=== PATIENT | female | born 1985 | race Caucasian/White ===

== ENCOUNTER 2017-01-08 21:48 | Inpatient (IN) | payer OTHER ==
--- NOTE | ~2017-01-08 | EKG ---
PATIENT: ROEL HODGES UNIT #: [id number] Ventricular Rate: 128 BPM Atrial Rate: 128 BPM P-R Interval: 130 ms QRS Duration: 88 ms Q-T Interval: 326 ms QTC Calculation(Bezet): 475 ms Calculated R Hopkins: 71 degrees Calculated T Hopkins: -119 degrees Diagnosis Line: Sinus tachycardia Diagnosis Line: Inferior infarct , age undetermined Diagnosis Line: Anterolateral infarct , age undetermined Diagnosis Line: Abnormal ECG Diagnosis Line: Diagnosis Line: Confirmed by CHRISTOPHER CURRAN MD ([id number]) on Diagnosis Line: 01/22/2017 8:01:36 AM INTERPRETING MD: BINA GARCIA
--- NOTE | ~2017-01-08 | FU ---
[facility] Nutrition Therapy DATE: 01/19/17 Patient: ROEL HODGES Physician: CHASE Address: [address] [facility] Room/Bed: [address], Zip: [place] [address] Admit Date: 01/09/17 Date of : [birth year] Height: 4 10 Weight: 55 25.4 NUTRITION MONITORING/FOLLOW-UP: Reason: PT SEEN FOR FOLLOW-UP/ENTERAL NUTRITION SUPPORT DX: ASIPRATION PNA W/RESP FAILURE , ASTHMA EXAC Anthropometrics: 4'10", WT: 58# (26 KG) (BEDSIDE), BMI: 12.1 -WEIGHTS HAVE RANGED 58-85# SINCE ADMIT. ADMIT WEIGHT: 70# Labs: GLU: 80, BUN: 31, CREAT: 0.4, CA+;8.3, ALB: 3.4, ALT: 68, K+:3.3 Meds: PROTONIX, MIRALAX, SENOKOT, IV LEVAQUIN, NOVOLOG, SOLU-MEDROL, ZOFRAN, LOPRESSOR, FUROSEMIDE, KCL I&O's: 1504/380 Skin: ISSUES NOTED Estimated Nutrition Needs: [id number] KCAL 43-65 G PRO Assessment: CHART REVIEWED AND EVENTS NOTED. PT SEEN FOR ENTERAL NUTRITION SUPPORT FOLLOW-UP. PT ON BIPAP (EXTUBATED ON 01/16/17). ENTERAL NUTRITION SUPPORT OF JEVITY 1.2 CURRENTLY OFF 2' PT VOMITING THIS AM, PER RN AND CHART. PER FAMILY IN ROOM, PT HAS HISTORY OF VOMITING. PER AND CHART, PT TOLERATING EN PRIOR TO THIS AM. FAMILY REPORTED NO DIET QUESTIONS AT THIS TIME. OF NOTE, PT DOES NOT WANT TO BE INTUBATED Dx: INADEQUATE ORAL INTAKE R/T CURRENT CLINICAL CONDITION AEB PT ON BIPAP, NEED FOR ALTERNATIVE NUTRITION SUPPORT- IN PROGRESS. -INADEQUATE ENTERAL NUTRITION INFUSION R/T PT VOMITING AEB PT EN ON HOLD AT THIS TIME. Intervention: 1. ENTERAL NUTRITION SUPPORT OFF Monitoring, Evaluation and Goals: GOALS NOT MET 1. ENTERAL NUTRITION; PROVIDE ~80-100% OF ESTIMATED NUTRIENT NEEDS W/NO SIGNS OF INTOLERANCE 2. LABS; WNL 3. WEIGHTS; PROMOTE GRADUAL WEIGHT GAIN MONITOR: -WEIGHTS -TF RE-INITIATION [facility] Nutrition Therapy DATE: 01/19/17 Patient: ROEL HODGES Physician: CHASE Address: [address] [facility] Room/Bed: [address], Zip: [place] [address] Admit Date: 01/09/17 Date of : [birth year] Height: 4 10 Weight: 55 25.4 -LABS Recommendations: 1. REPLACE ELECTROLYTES PRIOR TO INITIATION OF ENTERAL NUTRITION SUPPORT-K+ LOW 2. ONCE MEDICALLY FEASIBLE, RE-START ENTERAL NUTRITION SUPPORT OF JEVITY 1.2 @ 10 ML/HR, ADVANCE 10 ML q 6 HOURS TO GOAL RATE OF 45 ML/HR -PROVIDES 1296 KCAL, 55 G PRO, 821 ML FREE H20 CONTINUE FREE H20 FLUSHES PER MD 3. CONTINUE TO MONITOR BLOOD SUGAR REGIMEN RD WILL F/U PER PROTOCOL PT IS MOD/SEVERELY COMPROMISED Respectfully, RODOLFO MURRY MS, RD, LD Food and Nutritional Services [facility] cc: client file
--- NOTE | ~2017-01-08 | OR ---
Unit #: [id number] #: [id number] Patient: ROEL HODGES [id number] [address] [address] [id number] I MR#: [id number] NAME: ROEL HODGES ROOM: [facility] Date of Procedure: Admission Date: 01/09/2017 Surgeon: Sheeba Eisenberg M.D. : 1985 Attending Physician: Byron Kent M.D. Primary Care Physician: Livia Medeiros M.D. PROCEDURE OPERATIVE NOTE PROCEDURE Diagnostic bronchoscopy. INDICATION Pneumonia. PRE-PROCEDURE DIAGNOSIS Pneumonia. POST PROCEDURE DIAGNOSIS Pneumonia. DETAILS OF THE PROCEDURE After taking consent from the patient explaining the risks and benefits, the patient was placed in a proper position. Bronchoscope introduced through the endotracheal tube which was sitting above the mohsen. We examined the right upper, right middle, right lower lobe, left upper lobe, lingula and left lower lobe. No endobronchial lesion was found. There were thick, mucoid secretions in both lungs which were therapeutically suctioned. Then, we did a bronchoalveolar lavage in the right lower lobe and left lower lobe area with 120 mL saline in and 40 mL back. The patient tolerated the procedure very well, no complications happened. Dictated by... Ney Gibbs/aaron TD: 01/12/2017 12:10 JOB #: [id number] Unit #: [id number] #: [id number] Patient: ROEL HODGES PROCEDURE OPERATIVE NOTE X Sheeba Eisenberg MD PROCEDURE OPERATIVE NOTE
--- NOTE | ~2017-01-08 | EKG ---
PATIENT: ROEL HODGES UNIT #: [id number] Ventricular Rate: 135 BPM Atrial Rate: 135 BPM P-R Interval: 90 ms QRS Duration: 66 ms Q-T Interval: 278 ms QTC Calculation(Bezet): 417 ms P Kenefic: 83 degrees Calculated R Kenefic: 81 degrees Calculated T Kenefic: -16 degrees Diagnosis Line: Sinus tachycardia with short OK Diagnosis Line: Biatrial enlargement Diagnosis Line: Pulmonary disease pattern Diagnosis Line: Nonspecific ST abnormality Diagnosis Line: Abnormal QRS-T angle, consider primary T wave Diagnosis Line: abnormality Diagnosis Line: Abnormal ECG Diagnosis Line: When compared with ECG of 08-JAN-2017 21:06, Diagnosis Line: Nonspecific T wave abnormality now evident in Diagnosis Line: Inferior leads Diagnosis Line: Confirmed by CHRISTOPHER CURRAN MD ([id number]) on Diagnosis Line: 01/17/2017 11:28:12 AM INTERPRETING MD: BINA GARCIA
--- NOTE | ~2017-01-08 | CR72 ---
[facility] A Service of [facility] & [facility] RADIOLOGY TEXT RESULTS PATIENT: ROEL HODGES LOCATION: [facility] 568-01 : [birth year] UNIT #: [id number] AGE: [address]: Brigida Yin MD SEX: F ORDER DR: [id number] [facility] [address] [facility]. [place], [place] [address] [id number] I MR#: [id number] Acc #: [id number] NAME: ROEL HODGES : 1985 SEX: F STUDY DATE/TIME: 01/25/2017 17:36 UNIT: [facility] ROOM: [facility] STUDY DESCRIPTION: CR Chest Single View Portable Attending Physician: Brigida Yin M.D. Ordering Physician: Sheeba Eisenberg M.D. Primary Care Physician: Livia Medeiros M.D. MEDICAL IMAGING REPORT This report is preliminary unless electronic signature is present EXAM Portable chest x-ray, 01/25/2017 HISTORY Respiratory distress. COMPARISON 01/24/2017 at 0313 hours. FINDINGS Marked thoracic scoliosis unchanged. No acute-appearing bony abnormality. The right upper extremity approach PICC is unchanged. Cardiomediastinal silhouette stable. The lungs are well inflated. Previously seen ill-defined density in the right upper lung zone not present on today's examination. This may be a reflection of rapidly improving atelectasis or pneumonia. There is no dense airspace disease, pleural effusion or pneumothorax on today's examination. No suspicious nodule. Dictated by... Antwan Noble M.D. THIS IS AN ELECTRONICALLY VERIFIED REPORT Antwan Noble M.D. at 01/26/2017 8:06 PM LAUREL/moise TD: 01/25/2017 21:04 JOB #: [id number] MEDICAL IMAGING REPORT Page 1 of 1 COPY
--- NOTE | ~2017-01-08 | CR7 ---
[facility] A Service of [facility] RADIOLOGY TEXT RESULTS PATIENT: ROEL HODGES [facility] [birth year] UNIT #: [id number] AGE: [address]: Byron Kent MD SEX: F ORDER DR: [id number] [facility] [address] [facility]. [place], [place] [address] [id number] I MR#: [id number] Acc #: [id number] NAME: ROEL HODGES : 1985 SEX: F STUDY DATE/TIME: 01/10/2017 16:51 UNIT: [facility] ROOM: [facility] STUDY DESCRIPTION: CR Abdomen Single AP View Attending Physician: Byron Kent M.D. Ordering Physician: Byron Kent M.D. Primary Care Physician: Livia Medeiros M.D. MEDICAL IMAGING REPORT This report is preliminary unless electronic signature is present EXAM AP abdomen. DATE 01/10/2017 at 16:51 HISTORY PEG placement. COMPARISON None. FINDINGS Single radiographic image was obtained of the abdomen after injection of 60 mL of Gastrografin into patient's percutaneous gastrostomy tube. There is opacification of the gastric lumen consistent with satisfactory placement of the PEG. No discrete contrast extravasation is seen. Small amount of contrast was also seen in the proximal duodenum. There is severe thoracolumbar levoscoliosis. What appears to be a pump type device projects over the right hemipelvis. Chronic-appearing dislocation of the left hip. Dictated by... Renetta Mcdowell M.D. THIS IS AN ELECTRONICALLY VERIFIED REPORT Renetta Mcdowell M.D. at 01/11/2017 11:57 AM RENAE/moise TD: 01/11/2017 01:20 [facility] A Service of [facility] & [facility] RADIOLOGY TEXT RESULTS PATIENT: ROEL HODGES LOCATION: CICCU2 CICCU2 : [birth year] UNIT #: [id number] AGE: [address]: Byron Kent MD SEX: F ORDER DR: JOB #: [id number] MEDICAL IMAGING REPORT COPY
--- NOTE | ~2017-01-08 | CR72 ---
[facility] A Service of [facility] & [facility] RADIOLOGY TEXT RESULTS PATIENT: ROEL HODGES LOCATION: [place] [id number] : [birth year] UNIT #: [id number] AGE: [address]: Brigida Yin MD SEX: F ORDER DR: [id number] [facility] [address] [place], [place] [address] [id number] I MR#: [id number] Acc #: [id number] NAME: ROEL HODGES : 1985 SEX: F STUDY DATE/TIME: 01/18/2017 5:29 UNIT: [facility] ROOM: [facility] STUDY DESCRIPTION: CR Chest Single View Portable Attending Physician: Brigida Yin M.D. Ordering Physician: Sheeba Eisenberg M.D. Primary Care Physician: Livia Medeiros M.D. MEDICAL IMAGING REPORT This report is preliminary unless electronic signature is present EXAM AP portable chest Date 01/18/2017 at 05:29 HISTORY Pneumonia. Shortness of breath. Symptoms began 01/19/2017 FINDINGS The patient's right arm partially obscures the right hemithorax. There is small right pleural effusion with right basilar and perihilar infiltrate, probably not significantly changed. Left lung remains clear. Heart size is stable. Severe scoliosis. Osteopenia. IMPRESSION Small right pleural effusion and right irp-kz-awunt lung zone infiltrates are probably not significantly changed since the prior study. The right hemithorax is partially obscured by the patient's overlapping arm on this examination. No definite new airspace disease is seen. Dictated by... Renetta Mcdowell M.D. THIS IS AN ELECTRONICALLY VERIFIED REPORT Renetta Mcdowell M.D. at 01/19/2017 12:12 AM RENAE/prabhu TD: 01/18/2017 12:51 JOB #: [id number] MEDICAL IMAGING REPORT COPY
--- NOTE | ~2017-01-08 | CR72 ---
[facility] A Service of [facility] & [facility] RADIOLOGY TEXT RESULTS PATIENT: ROEL HODGES LOCATION: [address] : [birth year] UNIT #: [id number] AGE: [address]: Brigida Yin MD SEX: F ORDER DR: [id number] [facility] [address] [place], [place] [address] [id number] I MR#: [id number] Acc #: [id number] NAME: ROEL HODGES : 1985 SEX: F STUDY DATE/TIME: 01/19/2017 5:12 UNIT: [facility] ROOM: [facility] STUDY DESCRIPTION: CR Chest Single View Portable Attending Physician: Brigida Yin M.D. Ordering Physician: Sheeba Eisenberg M.D. Primary Care Physician: Livia Medeiros M.D. MEDICAL IMAGING REPORT This report is preliminary unless electronic signature is present EXAM AP portable chest, 01/19/2017 at 05:12 HISTORY Aspiration pneumonia with respiratory failure. Symptoms began 01/09/2017. COMPARISON AP portable chest, 01/18/2017 FINDINGS Previous right lung airspace disease appears nearly resolved. There may be minimal residual atelectasis or infiltrate within the right midlung. Left lung is clear. Severe thoracolumbar scoliosis. No definite pleural effusion or pneumothorax. IMPRESSION 1. Improved aeration in the right lung. There may be only minimal atelectasis remaining within the right mid lung. 2. Severe thoracolumbar scoliosis. Dictated by... Renetta Mcdowell M.D. THIS IS AN ELECTRONICALLY VERIFIED REPORT Renetta Mcdowell M.D. at 01/23/2017 8:37 AM RENAE/linh TD: 01/19/2017 10:56 JOB #: [id number] MEDICAL IMAGING REPORT Page 1 of 1 COPY
--- NOTE | ~2017-01-08 | CR72 ---
[facility] A Service of [facility] & [facility] RADIOLOGY TEXT RESULTS PATIENT: ROEL HODGES LOCATION: [address] : [birth year] UNIT #: [id number] AGE: [address]: Byron Kent MD SEX: F ORDER DR: [id number] [place] [address] [facility]. [place], [place] [address] [id number] I MR#: [id number] Acc #: [id number] NAME: ROEL HODGES : 1985 SEX: F STUDY DATE/TIME: 01/09/2017 7:17 UNIT: [facility] ROOM: [facility] STUDY DESCRIPTION: CR Chest Single View Portable Attending Physician: Byron Kent M.D. Ordering Physician: Sandra Lion M.D. Primary Care Physician: Livia Medeiros M.D. MEDICAL IMAGING REPORT This report is preliminary unless electronic signature is present EXAM Frontal chest, 01/09/2017 at 07:17 hours INDICATION 31-year-old female with shortness of air. Ventilator patient. Symptoms for a day. TECHNIQUE Frontal chest was performed. COMPARISON 01/09/2017 at 01:37 hours FINDINGS There is advanced dextroscoliosis with a rotational component involving the thoracolumbar spine. ET tube tip appears to be positioned approximately 2.0 cm above the level of the mohsen. Cardiac silhouette within normal limits. No convincing evidence of volume overload or interstitial edema. There is no dense consolidation or pleural effusion. There is subtle asymmetric haziness in the left hemithorax. This is favored to be artifactual due to patient scoliosis and rotation to the left and related to positioning. No distinct pneumothorax. IMPRESSION 1. Exam degraded by scoliosis and positioning. 2. ET tube tip in good position above the mohsen. No distinct pneumothorax. 3. No new consolidation or effusion. Asymmetric subtle haziness in the left hemithorax favored to be artifactual. It would be impossible to exclude an element of asymmetric atelectasis or developing infiltrate. Continued attention on followup is recommended. Dictated by... [facility] A Service of [facility] RADIOLOGY TEXT RESULTS PATIENT: ROEL HODGES LOCATION: [address] : [birth year] UNIT #: [id number] AGE: [address]: Byron Kent MD SEX: F ORDER DR: Karlos Bruno M.D. THIS IS AN ELECTRONICALLY VERIFIED REPORT Karlos Bruno M.D. at 01/09/2017 4:38 PM Robyn TD: 01/09/2017 11:21 JOB #: [id number] MEDICAL IMAGING REPORT COPY
--- NOTE | ~2017-01-08 | OR ---
Unit #: [id number] #: [id number] Patient: ROEL HODGES [id number] [address] [place], [place] [address] [id number] I MR#: [id number] NAME: ROEL HODGES ROOM: 333 Date of Procedure: 01/19/2017 Admission Date: 01/09/2017 Surgeon: Mayco Gutierrez M.D. : 1985 Attending Physician: Brigida Yin M.D. Primary Care Physician: Livia Medeiros M.D. OPERATIVE REPORT PRIMARY CARE PHYSICIAN Livia Medeiros M.D. PREOPERATIVE DIAGNOSES The patient has aspiration pneumonia. The purpose of the procedure is to convert from gastrostomy to jejunostomy tube through the current fistula. PROCEDURE PERFORMED Upper gastrointestinal endoscopy. POSTOPERATIVE DIAGNOSES The G-J conversion could not be done as the patient is frequently desaturated and required ventilatory assistance with Ambu bag on two occasions, each time shortly after the scope was advanced in the stomach. A total of 2.5 mg of versed was given throughout the procedure. It was felt unsafe to continue the procedure, therefore the original gastrostomy tube was again placed at the end of procedure and the patient will be rescheduled with protected airway under monitored anesthesia care in the next 24 to 48 hours. SEDATION USED Procedural sedation. DESCRIPTION OF PROCEDURE Following detailed explanation of the potential risks and complications of an upper endoscopy and a gastrostomy to jejunostomy conversion namely perforation, bleeding, and complication related to sedation, the procedure was done in intensive care unit, because of patient's body posture, placement of the equipment, and the procedure was quite challenging. In addition, the patient recently been extubated and has very poor respiratory reserve. The sedation using Versed was given. Lubricated tip of the Olympus video upper endoscope was passed through the bite block into the proximal esophagus under direct vision. The entire esophageal mucosa was examined and appeared normal. The scope was then advanced into the gastric cavity and the latter was insufflated. Mucosa of the fundus, body, and antrum was examined and appeared unremarkable. Pylorus was intubated with visualization of the normal duodenal bulb and second and third part of the duodenum. We then proceeded with conversion with the gastrostomy tube was withdrawn and a new jejunostomy tube was placed through the matured gastrocutaneous fistula. The threaded knot was then grasped using a biopsy forceps and the jejunostomy tube was guided towards the pylorus into the duodenum. The patient however rapidly desaturated Unit #: [id number] #: [id number] Patient: ROEL HODGES and became purplish blue requiring ventilatory assistance with Ambu bag. Her oxygen saturation however continued to be 98% to 100%. After she was resuscitated, second attempt intubation again led to the same outcome. It was therefore felt to postpone the procedure and do it under monitored anesthesia care with protected airways. A detailed discussion was also held with the patient's POA and caregiver. The fact that she has a very poor respiratory reserve, because of severe kyphoscoliosis. Any procedure is high risk in her case. The POA and the caregiver understood the risks, but feels that because of the repeated aspiration pneumonias, jejunostomy conversion will be preferable to reduce the risk of significant aspiration in future. Dictated by... Ney Bauer/laith TD: 01/21/2017 10:48 JOB #: [id number] OPERATIVE REPORT X Mayco Gutierrez MD X PROCEDURE OPERATIVE NOTE
--- NOTE | ~2017-01-08 | FU ---
[facility] Nutrition Therapy DATE: 01/24/17 Patient: ROEL HODGES Physician: CHASE Address: [address] [facility] Room/Bed: [address], Zip: [place] [address] Admit Date: 01/09/17 Date of : [birth year] Height: 4 10 Weight: 44 20 NUTRITION MONITORING/FOLLOW-UP: Reason: TF follow-up Anthropometrics: Ht: 4'10" Adm wt: 31.8 kg (70#) BMI: 16.7 Current wt: range from 44-99# since admit Labs: K+ 3.1, Cl- 91, Gluc 173, Creat <0.3, POC 146 Meds: D5%, novolog, Lopressor, Furosemide, Mg, K, Protonix, Reglan, Zofran, Solu-Medrol I&O's: 3096/2500, last BM 01/18 Skin: Internal pump (abd) Estimated Nutrition Needs: 6107-0076 kcal (35-40 kcal/kg) 43-65 g protein (1.2-1.8 g/kg) Assessment: Chart reviewed, events noted. Pt is receiving Jevity 1.2 at goal rate of 45 ml/hr. Tube feeds were held from 12a - 5a d/t 400 ml residuals. Per pump history, pt received 21% of goal volume over the past 24 hrs. Pt receiving 150-200 ml flushes q 4 hrs. See recommendations below. Dx: Inadequate oral intake RT current clinical condition AEB need for alternative nutrition support. -IN PROGRESS -Inadequate enteral nutrition infusion RT 400 ml residuals AEB enteral nutrition being held from 12a - 5a, pt receiving 21% of goal volume. -IN PROGRESS Intervention: 1. Enteral nutrition Monitoring, Evaluation and Goals: 1. Enteral nutrition; provide ~80-100% of estimated nutrition needs w/no signs of intolerance 2. Labs; WNL 3. Weight; prevent further unintentional weight loss Recommendations: 1. Continue Jevity 1.2 @ 45 ml/hr. This will provide: 1296 kcal/ 60 g protein/ 875 ml free H20. Continue free H2O flushes per MD. 2. Continue to monitor blood sugar. [facility] Nutrition Therapy DATE: 01/24/17 Patient: ROEL HODGES Physician: CHASE Address: [address] [facility] Room/Bed: [address], Zip: [place] [address] Admit Date: 01/09/17 Date of : [birth year] Height: 4 10 Weight: 44 20 3. Optimize pt's bowel regimen. Of note, pt's last BM was 01/18 (6 days). Status: Pt is at a moderate-severe nutrition risk. RD will f/u per protocol. Respectfully, AL BEAR, Movement Assembly Final Inspector Corrina Pineda MS, RD, LD Food and Nutritional Services [facility] cc: client file
--- NOTE | ~2017-01-08 | CR72 ---
[facility] A Service of [facility] RADIOLOGY TEXT RESULTS PATIENT: ROEL HODGES LOCATION: [address] : [birth year] UNIT #: [id number] AGE: [address]: Brigida Yin MD SEX: F ORDER DR: [id number] [facility] [address]. [place], [place] [address] [id number] I MR#: [id number] Acc #: [id number] NAME: ROEL HODGES : 1985 SEX: F STUDY DATE/TIME: 01/16/2017 10:06 UNIT: [facility] ROOM: [facility] STUDY DESCRIPTION: CR Chest Single View Portable Attending Physician: Brigida Yin M.D. Ordering Physician: Brigida Yin M.D. Primary Care Physician: Livia Medeiros M.D. MEDICAL IMAGING REPORT This report is preliminary unless electronic signature is present EXAM Portable chest HISTORY Endotracheal tube adjusted. COMPARISON Earlier today. TECHNIQUE A single AP view of the chest was obtained. FINDINGS The endotracheal tube tip has been advanced and is now better positioned with the tip at the level of T3. No new infiltrates are seen. No changes otherwise are noted when compared to the exam earlier today. STAT * RESULT Dictated by... Jonh Kaur M.D. THIS IS AN ELECTRONICALLY VERIFIED REPORT John Kaur M.D. at 01/16/2017 4:45 PM ALLIEF/maya TD: 01/16/2017 10:56 JOB #: [id number] MEDICAL IMAGING REPORT [facility] A Service of [facility] RADIOLOGY TEXT RESULTS PATIENT: ROEL HODGES LOCATION: [address] : [birth year] UNIT #: [id number] AGE: [address]: Brigida Yin MD SEX: F ORDER DR: COPY
--- NOTE | ~2017-01-08 | FU ---
[facility] Nutrition Therapy DATE: 01/16/17 Patient: ROEL HODGES Physician: CHASE Address: [address] [facility] Room/Bed: [address], Zip: [place] [address] Admit Date: 01/09/17 Date of : [birth year] Height: 4 10 Weight: 60 27.5 NUTRITION MONITORING/FOLLOW-UP: Reason: PT SEEN FOR FOLLOW-UP/ENTERAL NUTRITION SUPPORT DX: ASPIRATION PNA W/RESP FAILURE, ASTHMA EXAC Anthropometrics: 4'10", WT: 60# (27 KG), BMI: 12.5 -WEIGHTS HAAVE RANGED ~60-85# SINCE ADMIT Labs: GLU: 59, CREAT: 0.4, ALB: 3.3, AST: 93, ALT: 120, K+:3.2 Meds: FENTANYL, PROTONIX, MIRALAX, VERSED, SENOKOT, IV LEVAQUIN, NOVOLOG, ZOFRAN, FUROSEMIDE, KCL I&O's: 2361/3530 Skin: NO KNOWN SKIN ISSUES EDEMA: BILATERAL HANDS GENERALIZED EDEMA Estimated Nutrition Needs: 4741-4468 KCAL 43-65 G PRO Assessment: CHART REVIEWED AND EVENTS NOTED. PT SEEN FOR ENTERAL NUTRITION SUPPORT FOLLOW-UP. PT CONTINUES TO BE INTUBATED AND SEDATED RECEIVING ALTERNATIVE NUTRITION SUPPORT OF JEVITY 1.2 @ 45 ML/HR. PER RN AND CHART, PT TOLERATING ENTERAL NUTRITION, NOTING NO ISSUES. FAMILY IN ROOM REPORTED NO DIET QUESTIONS AT THIS TIME. PLANS IN PLACE FOR WEANING PROTOCOL (VENT). RD TO FOLLOW. Dx: INADEQUATE ORAL INTAKE R/T CURRENT CLINICAL CONDITION AEB NEED FOR ALTERNATIVE NUTRITION SUPPORT, PT INTUBATED AND SEDATED.- IN PROGRESS Intervention: 1. ENTERAL NUTRITION SUPPORT Monitoring, Evaluation and Goals: GOALS MET 1. ENTERAL NUTRITION; PROVIDE 80-100% OF ESTIMATED NUTRIENT NEEDS W/NO SIGNS OF INTOLERANCE 2. LABS; WNL: GLU, K+ 3. GI; PROMOTE REGULAR GI FUNCTION MONITOR: -TF RATE/RESIDUALS -WEIGHTS -LABS [facility] Nutrition Therapy DATE: 01/16/17 Patient: ROEL HODGES Physician: CHASE Address: [address] [facility] Room/Bed: [address], Zip: [place] [address] Admit Date: 01/09/17 Date of : [birth year] Height: 4 10 Weight: 60 27.5 -EXTUBATION? Recommendations: 1. REPLETE ELECTROLYTES NEEDED (K+ LOW) 2. CONTINUE CURRENT ENTERAL NUTRITION SUPPORT REGIMEN ABOVE-JEVITY 1.2 @ 45 ML/HR -ADEQUATE FOR PT'S CURRENT ESTIMATED NEEDS CONTINUE FREE H20 FLUSHES OF 140 ML TID 3. CONTINUE TO OPTIMIZE BLOOD SUGAR CONTROL REGIMEN 2' ELEVATED BLOOD SUGAR LEVELS RD WILL F/U PER PROTOCOL MOD/SEVERELY COMPROMISED Respectfully, RODOLFO MURRY MS, RD, LD [facility] cc: client file
--- NOTE | ~2017-01-08 | CR72 ---
[facility] A Service of [facility] RADIOLOGY TEXT RESULTS PATIENT: ROEL HODGES LOCATION: [address] : [birth year] UNIT #: [id number] AGE: [address]: Brigida Yin MD SEX: F ORDER DR: [id number] [facility] [address] [facility]. [place], [place] [address] [id number] I MR#: [id number] Acc #: [id number] NAME: ROEL HODGES : 1985 SEX: F STUDY DATE/TIME: 01/13/2017 4:52 UNIT: [facility] ROOM: [facility] STUDY DESCRIPTION: CR Chest Single View Portable Attending Physician: Brigida Yin M.D. Ordering Physician: Sheeba Eisenberg M.D. Primary Care Physician: Livia Medeiros M.D. MEDICAL IMAGING REPORT This report is preliminary unless electronic signature is present EXAM AP portable chest. DATE OF EXAM 01/13/2017 HISTORY Shortness of breath. Respiratory failure. Pneumonia. Aspiration. Symptoms began 01/09/2017. On ventilator. COMPARISON AP portable chest 01/11/2017, and CT chest 01/11/2017. FINDINGS Worsening airspace disease in the right lower lobe since the previous study. Small right pleural effusion may be present, as well. Perihilar airspace disease in the left lung not thought to be significantly changed. Severe thoracolumbar scoliosis. ET tube remains in satisfactory position in the mid thoracic trachea. Right arm approach PICC extends to the cavoatrial junction. No visible pneumothorax. IMPRESSION 1. Bilateral alveolar disease changes consistent with the appearance of aspiration or pneumonia. Interval worsening airspace disease in the right lower lobe since 01/11/2017. Small right pleural effusion may also be present. 2. No visible pneumothorax. 3. Scoliosis. Dictated by... Renetta Mcdowell M.D. [facility] A Service of [facility] RADIOLOGY TEXT RESULTS PATIENT: ROEL HODGES LOCATION: [address] : [birth year] UNIT #: [id number] AGE: [address]: Brigida Yin MD SEX: F ORDER DR: THIS IS AN ELECTRONICALLY VERIFIED REPORT Renetta Mcdowell M.D. at 01/14/2017 9:59 PM Natalie TD: 01/13/2017 23:37 JOB #: [id number] MEDICAL IMAGING REPORT COPY
--- NOTE | ~2017-01-08 | CO ---
Unit #: [id number] #: [id number] Patient: ROEL HODGES [id number] [address] [place], [place] [address] [id number] I MR#: [id number] NAME: ROEL HODGES ROOM: [facility] Age: 31 Sex: F Admission Date: 01/09/2017 : 1985 Attending Physician: Brigida Yin M.D. Primary Care Physician: Livia Medeiros M.D. Consultation Date: 01/21/2017 CONSULTATION REPORT HISTORY OF PRESENT ILLNESS This is a 31-year-old white female with cerebral palsy, severe contractures, scoliosis, and immobility. She is nonverbal and unable to give a history, but does blink her eyes yes and no. She was seen by Cardiology a few years ago during hospitalization with pneumonia and was noted to have sinus tachycardia. Additional past medical history includes asthma and GERD. She did have a trach in the past, but underwent reversal/closure. She is known to have dysphagia and has a PEG tube. She presented to the hospital with respiratory failure and a low oxygen saturation as well as a cough after she received a PEG tube feeding in the outpatient care setting. She also had some worsening mental status. She was brought to the emergency department for further evaluation. She was diagnosed with acute hypoxic respiratory failure and aspiration pneumonia. She was transferred to the intensive care unit for further management. Yesterday, she was transferred to telemetry, but was noted to have tachycardia with rates in the 130s to 140s. Cardiology was consulted for further management. It is unclear if the patient is asymptomatic as she is nonverbal. Her mother is at the bedside and has provided some details. She states that during periods of distress or anxiety, the patient is known to have a high heart rate. She has not complained of any chest pain, dizziness, or palpitations. She has not had any lower extremity edema. She has been short of breath recently since admission. She is currently on a BiPAP during exam. Cardiology was consulted for tachycardia. Upon review of EKG, the patient has sinus tachycardia with nonspecific ST-T wave changes. Labs revealed potassium 3.1, sodium is elevated at 151, creatinine is 0.3. LFTs were mildly elevated. BNP last week was 507. TSH was low at 0.27, but free T4 was normal. Initial cardiac enzymes were negative. PAST MEDICAL HISTORY 1. Cerebral palsy with severe contractures. 2. Severe scoliosis. 3. Immobility syndrome. 4. Sinus tachycardia. 5. Asthma. 6. GERD. 7. Dysphagia, status post PEG tube. 8. History of trach, now closed. 9. Nonsmoker. PAST SURGICAL HISTORY 1. PEG tube. 2. Trach. Unit #: [id number] #: [id number] Patient: ROEL HODGES 3. Baclofen pump. HOME MEDICATIONS List of home medications include Prilosec, albuterol, Singulair, Benadryl, Maalox, MiraLax, Jevity, Tussionex. ALLERGIES Morphine and codeine. SOCIAL HISTORY The patient lives in a group usp. She is a nonsmoker. There are no reports of alcohol or illicit drug use. FAMILY HISTORY Noncontributory. REVIEW OF SYSTEMS Difficult to obtain per the patient. PHYSICAL EXAMINATION VITAL SIGNS: Temperature 99, pulse 119, blood pressure 111/77. CONSTITUTIONAL: This is a 31-year-old white female, who is anxious, on BiPAP. SKIN: Warm and dry. NECK: Supple. No jugular vein distention. No hepatojugular reflux. Normal carotid upstrokes. No carotid bruits auscultated. HEART: S1 and S2. Regular rate and rhythm, but tachycardic. No murmurs, rubs, or gallops. LUNGS: Bilateral breath sounds are coarse with rhonchi throughout. Respirations are slightly tachypneic. ABDOMEN: Soft, nontender, and nondistended. Positive bowel sounds auscultated x4 quadrants. No ascites noted. EXTREMITIES: Bilateral lower extremities have no pretibial pitting edema. DP and PT pulses are 2+. Capillary refill less than 3 seconds. DIAGNOSTIC STUDIES LABORATORY RESULTS: White blood cell count 9.8, hemoglobin 13.8, hematocrit 42, platelets 168. Sodium 151, potassium 3.1, chloride 96, CO2 of 49, BUN 26, creatinine 0.3, glucose 194, AST 46, ALT 86, alkaline phosphatase 56. BNP 507 on 01/11/2017. TSH 0.27, free T4 0.97. Troponin 0.05. IMAGING STUDIES: Chest x-ray is significant for aspiration pneumonia. CARDIOVASCULAR STUDIES: EKG reveals sinus tachycardia with nonspecific ST-T wave changes. IMPRESSION 1. Acute hypoxic respiratory failure, currently on BiPAP. 2. Aspiration pneumonia. 3. History of dysphagia, status post PEG tube. 4. Sinus tachycardia. 5. Left ventricular ejection fraction of 50% to 55% with mild mitral valve prolapse and yfyq-bq-gmdergmy mitral regurgitation January 2017. 6. Hypernatremia. 7. Hypokalemia. 8. Transaminitis. 9. Cerebral palsy. Unit #: [id number] #: [id number] Patient: ROEL HODGES 10. Severe scoliosis. 11. Contractures. 12. Immobility syndrome. 13. Asthma. PLAN 1. The patient presented to the hospital with altered mental status, shortness of breath, and low O2 saturation. She was admitted for aspiration pneumonia and respiratory failure. 2. Cardiology was consulted for tachycardia. Upon review of telemetry and EKG, the patient has sinus tachycardia with rates in the 130s to 140s. 3. She has been started on IV metoprolol. We will change parameters for further heart rate control. 4. TSH level was low, but free T4 was normal. 5. 2D echocardiogram completed on 01/11/2017 revealed an ejection fraction of 50% to 55% with mild mitral valve prolapse and xbbd-xe-ixlhsvny mitral regurgitation. 6. The patient is a poor historian, but there have been no complaints of chest pain and cardiac enzymes are negative. 7. The patient's potassium and magnesium levels are low and she is on protocol. 8. She is currently on free water, which may need to be increased. 9. She is planned for PEG tube advancement to prevent further aspiration. Dictated by... Taylor Herndon APRN for [facility]/laith TD: 01/23/2017 02:22 JOB #: [id number] CONSULTATION REPORT Page 1 of 1 X X CONSULTATION REPORT
--- NOTE | ~2017-01-08 | CR72 ---
[facility] A Service of [facility] RADIOLOGY TEXT RESULTS PATIENT: ROEL HODGES LOCATION: [address] : [birth year] UNIT #: [id number] AGE: [address]: Byron Kent MD SEX: F ORDER DR: [id number] [facility] [address] [facility]. [place], [place] [address] [id number] I MR#: [id number] Acc #: [id number] NAME: ROEL HODGES : 1985 SEX: F STUDY DATE/TIME: 01/08/2017 22:14 UNIT: [facility] ROOM: [facility] STUDY DESCRIPTION: CR Chest Single View Portable Attending Physician: Byron Kent M.D. Ordering Physician: Joe Brown M.D. Primary Care Physician: Livia Medeiros M.D. MEDICAL IMAGING REPORT This report is preliminary unless electronic signature is present EXAM AP portable chest DATE 01/08/2017 at 22:14 HISTORY Shortness breath, vomiting and cough today. COMPARISON AP portable chest radiograph 11/13/2015 FINDINGS There is severe thoracolumbar dextroscoliosis. Mediastinal contour shifted toward the left. Suspected left lower lobe airspace disease. Right lung appears relatively clear. No definite pleural effusion or pneumothorax. IMPRESSION 1. Suspected ill-defined airspace disease in the left lower lobe. Correlate clinically for pneumonia. 2. Severe thoracolumbar dextroscoliosis. Dictated by... Renetta Mcdowell M.D. THIS IS AN ELECTRONICALLY VERIFIED REPORT Renetta Mcdowell M.D. at 01/09/2017 2:[address] [facility]/justino TD: 01/09/2017 10:04 JOB #: [id number] [facility] A Service of [facility] RADIOLOGY TEXT RESULTS PATIENT: ROEL HODGES LOCATION: [address] : [birth year] UNIT #: [id number] AGE: [address]: Byron Kent MD SEX: F ORDER DR: MEDICAL IMAGING REPORT COPY
--- NOTE | ~2017-01-08 | CR72 ---
[facility] A Service of [facility] & [facility] RADIOLOGY TEXT RESULTS PATIENT: ROEL HODGES LOCATION: [facility] [place] [facility] 568-01 : 83 UNIT #: [id number] AGE: [address]: Brigida Yin MD SEX: F ORDER DR: [id number] [facility] [address] [facility]. [place], [place] [address] [id number] I MR#: [id number] Acc #: [id number] NAME: ROEL HODGES : 1985 SEX: F STUDY DATE/TIME: 01/24/2017 3:13 UNIT: [facility] ROOM: [facility] STUDY DESCRIPTION: CR Chest Single View Portable Attending Physician: Brigida Yin M.D. Ordering Physician: Sheeba Eisenberg M.D. Primary Care Physician: Livia Medeiros M.D. MEDICAL IMAGING REPORT This report is preliminary unless electronic signature is present EXAM AP portable chest 01/24/2017. HISTORY Respiratory failure. Short of air. Follow up pulmonary status. TECHNIQUE AP portable upright chest x-ray. FINDINGS Exam shows patchy opacity in the upper right lung that is newly visible since 01/22/2017. New pulmonary infiltrate is suspected. Continued follow up recommended. Remaining portions of both lungs appear clear. Severe thoracic deformity due to profound scoliosis. PICC remains in good position. Heart size normal. No pleural effusion. IMPRESSION Possible new infiltrate in the right upper lung. Dictated by... Hermann Smiley M.D. THIS IS AN ELECTRONICALLY VERIFIED REPORT Hermann Smiley M.D. at 01/24/2017 10:06 PM RGW/wayne TD: 01/24/2017 13:24 JOB #: [id number] MEDICAL IMAGING REPORT Page 1 of 1 COPY
--- NOTE | ~2017-01-08 | A ---
[facility] Nutrition Therapy DATE: 01/10/17 Patient: ROEL HODGES Physician: CHASE Address: [address] [facility] Room/Bed: [address], Zip: [place] [address] Admit Date: 01/09/17 Date of : [birth year] Height: 4 10 Weight: 85 39 NUTRITIONAL ASSESSMENT: REASON: PT SEEN FOR NO DIET ORDER IN ICU ASSESSMENT, ALSO LOW BMI NOTED PT IS 31 Y.O. FEMALE ADMITTED FOR ASPIRATION PNA W/RESPIRATORY FAILURE, ASTHMA EXAC PMH: CEREBRAL PALSY, DYSPHAGIA S/P PEG PLACEMENT, PREVIOUS TRACH PLACEMENT, ASTHMA, PNA, GERD, SCOLIOSIS Anthropometrics: 4'10", WT: 80# (BEDSIDE) (36 KG), BMI: 16.7, 84%IBW -WEIGHTS HAVE RANGED 66-85# SINCE ADMIT Labs: GLU: 189, BUN: 8, CREAT: 0.3, CA+:7.6 Meds: PROTONIX, MIRALAX, IV LEVAQUIN, D5%, FENTANYL/VERSED, NOVOLOG, SOLU-MEDROL, ZOFRAN, NACL I/O & Bowel function: 4291/625 Skin Integrity: PEG TUBE MID ABD Estimated Nutrition Needs: 3767-5441 KCAL (35-40 KCAL/KG BW) 43-65 G PRO (1.2-1.8 G PRO/KG BW) FLUIDS CONSISTENT W/KCAL NEEDS OR MANAGE PER MD Assessment: CHART REVIEWED AND EVENTS NOTED. PT SEEN FOR NO DIET ORDER IN ICU + LOW BMI. PT ARRIVED THIS AM AT 8A 2' DX ABOVE, CURRENTLY INTUBATED AND SEDATED. PER RN AND CHART, PT WAS RECEIVING ALTERNATIVE NUTRITION SUPPORT OF JEVITY 1.2 (237 ML) BOLUS 1 CAN QID. NO FAMILY IN ROOM AT THIS TIME. NO CURRENT PLANS IN PLACE TO BEGIN ALTERNATIVE NUTRITION AT THIS TIME. RD TO FOLLOW. SEE RECOMMENDATIONS BELOW. -TUBE FEEDS PROVIDE 1152 KCAL, 53 G PRO, 778 ML FREE H20 Dx: INADEQUATE ORAL INTAKE R/T DYSPHAGIA, PMH AEB PT INTUBATED AND SEDATED, PEG TUBE IN PLACE, CURRENTLY NPO. Intervention: 1. NPO 2. PEG TUBE Monitoring, Evaluation and Goals: 1. ENTERAL NUTRITION; PROVIDE 100% ESTIMATED NUTRIENT NEEDS; TOLERATE EN AT GOAL W/NO SIGNS OF INTOLERANCE 2. WEIGHTS; PROMOTE GRADUAL WEIGHT GAIN TOWARDS HEALTHY BMI (19.0-25.0) OR +/-10%IBW 3. LABS; WNL [facility] Nutrition Therapy DATE: 01/10/17 Patient: ROEL HODEGS Physician: CHASE Address: [address] [facility] Room/Bed: [address], Zip: [place] [address] Admit Date: 01/09/17 Date of : [birth year] Height: 4 10 Weight: 85 39 MONITOR: -WEIGHTS -PLANS FOR ENTERAL NUTRITION SUPPORT -EXTUBATION -LABS Recommendations: 1. ONCE MEDICALLY FEASIBLE, BEGIN ALTERNATIVE NUTRITION SUPPORT OF JEVITY 1.2 @ 20 ML/HR, ADVANCE 10 ML q 4 HOURS TO GOAL RATE OF 45 ML/HR -PROVIDES 1296 KCAL, 60 G PRO, 875 ML FREE H20 ADD FREE H20 FLUSHES OF 140 ML TID TO MEET PT'S CURRENT ESTMATED FLUID NEEDS OR MANAGE PER MD 2. OPTIMIZE PT'S BLOOD SUGAR CONTROL REGIMEN (PT'S BLOOD SUGARS ELEVATED) RD WILL F/U PER PROTOCOL PT IS SEVERELY COMPROMISED Respectfully, RODOLFO MURRY MS, RD, LD Food and Nutritional Services [facility] cc: client file
--- NOTE | ~2017-01-08 | CR72 ---
[facility] A Service of [facility] & [facility] RADIOLOGY TEXT RESULTS PATIENT: ROEL HODGES LOCATION: [place] [address]-04 : 83 UNIT #: [id number] AGE: [address]: Brigida Yin MD SEX: F ORDER DR: [id number] [facility] [address] [facility] [place], [place] [address] [id number] I MR#: [id number] Acc #: [id number] NAME: ROEL HODGES : 1985 SEX: F STUDY DATE/TIME: 01/15/2017 4:49 UNIT: [facility] ROOM: [facility] STUDY DESCRIPTION: CR Chest Single View Portable Attending Physician: Brigida Yin M.D. Ordering Physician: Sheeba Eisenberg M.D. Primary Care Physician: Livia Medeiros M.D. MEDICAL IMAGING REPORT This report is preliminary unless electronic signature is present EXAM AP portable chest date 01/15/2017 at 0449 HISTORY Pneumonia and shortness of breath. Symptoms began 01/09/2017. History of asthma. COMPARISON AP portable chest 01/14/[address] chest 01/11/2017. FINDINGS Severe thoracolumbar scoliosis. Dense airspace disease changes in the right mfr-op-vqfoo lung zone with layering right pleural effusion and probably not significantly changed allowing for differences in positioning and technique. ET tube remains in the hur-is-zyycd thoracic trachea. Suspected mild left basilar infiltrates unchanged. Right arm approach PICC tip extends to the SVC or cavoatrial junction. No visible pneumothorax. IMPRESSION Persistent dense right dtg-dy-adhyw lung zone consolidation with small layering right pleural effusion and ill-defined infiltrates in left base, without significant change from 1 day prior. Dictated by... Renetta Mcdowell M.D. THIS IS AN ELECTRONICALLY VERIFIED REPORT Renetta Mcdowell M.D. at 01/15/2017 10:02 PM Angella/ori TD: 01/15/2017 09:17 [facility] A Service of [facility] & [facility] RADIOLOGY TEXT RESULTS PATIENT: ROEL HODGES LOCATION: [address] [id number] [birth year] UNIT #: [id number] AGE: [address]: Brigida Yin MD SEX: F ORDER DR: JOB #: [id number] MEDICAL IMAGING REPORT COPY
--- NOTE | ~2017-01-08 | CR72 ---
[facility] A Service of [facility] & [facility] RADIOLOGY TEXT RESULTS PATIENT: ROEL HODGES LOCATION: [address] : 83 UNIT #: [id number] AGE: [address]: Byron Kent MD SEX: F ORDER DR: [id number] [facility] [address] [facility]. [place], [place] [address] [id number] I MR#: [id number] Acc #: [id number] NAME: ROEL HODGES : 1985 SEX: F STUDY DATE/TIME: 01/10/2017 7:08 UNIT: [facility] ROOM: [facility] STUDY DESCRIPTION: CR Chest Single View Portable Attending Physician: Byron Kent M.D. Ordering Physician: Sandra Lion M.D. Primary Care Physician: Livia Medeiros M.D. MEDICAL IMAGING REPORT This report is preliminary unless electronic signature is present HISTORY Respiratory failure. Endotracheal tube placement. TECHNIQUE AP portable chest x-ray. FINDINGS Newly placed endotracheal tube tip is in good position in the low thoracic trachea at least 2 cm above the mohsen. Mild perihilar infiltrate or edema, unchanged since yesterday. Peripheral lungs are clear. Heart size normal. Severe scoliosis. Right arm PICC tip in the low SVC. IMPRESSION Newly placed endotracheal tube in good position. Dictated by... Hermann Smiley M.D. THIS IS AN ELECTRONICALLY VERIFIED REPORT Hermann Smiley M.D. at 01/10/2017 4:12 PM NELLY/mera TD: 01/10/2017 07:40 JOB #: [id number] MEDICAL IMAGING REPORT COPY
--- NOTE | ~2017-01-08 | CR72 ---
[facility] A Service of [facility] RADIOLOGY TEXT RESULTS PATIENT: ROEL HODGES LOCATION: [place] [address]-04 : 83 UNIT #: [id number] AGE: [address]: Brigida Yin MD SEX: F ORDER DR: [id number] [facility] [address] [facility]. [place], [place] [address] [id number] I MR#: [id number] Acc #: [id number] NAME: ROEL HODGES : 1985 SEX: F STUDY DATE/TIME: 01/17/2017 3:18 UNIT: [facility] ROOM: [facility] STUDY DESCRIPTION: CR Chest Single View Portable Attending Physician: Brigida Yin M.D. Ordering Physician: Sheeba Eisenberg M.D. Primary Care Physician: Livia Medeiros M.D. MEDICAL IMAGING REPORT This report is preliminary unless electronic signature is present EXAM AP portable chest DATE 01/17/2017 03:18 HISTORY Extubated 01/16/2017. Pneumonia and shortness of breath which began 01/09/2017. COMPARISON AP portable chest 01/16/2017 10:06 FINDINGS The right uqm-ln-jwmoi lung zone consolidative change appears improved with mild right basilar airspace disease and small right pleural effusion remaining. ET tube has been removed. Right arm approach PICC remains. Left lung appears clear. No visible pneumothorax. Thoracolumbar scoliosis redemonstrated. IMPRESSION Significantly improved aeration within the right zhl-le-ljgum lung zone compared to yesterday's study with a small amount of residual right basilar infiltrate and small pleural effusion remaining. No visible pneumothorax. ET tube remains in satisfactory position. Dictated by... Renetta Mcdowell M.D. THIS IS AN ELECTRONICALLY VERIFIED REPORT Renetta Mcdowell M.D. at 01/17/2017 10:25 PM LLH/mike [facility] A Service of [facility] RADIOLOGY TEXT RESULTS PATIENT: ROEL HODGES LOCATION: [place] [address]04 : 83 UNIT #: [id number] AGE: [address]: Brigida Yin MD SEX: F ORDER DR: TD: 01/17/2017 12:20 JOB #: [id number] MEDICAL IMAGING REPORT COPY
--- NOTE | ~2017-01-08 | HP ---
Unit #: [id number] #: [id number] Patient: ROEL HODGES [id number] [address] [place], [place] [address] [id number] I MR#: [id number] NAME: ROEL HODGES ROOM: 33123 Age: 31 Sex: F Admission Date: 01/09/2017 : 1985 Attending Physician: Ruthie aZmora M.D. Primary Care Physician: Livia Medeiros M.D. HISTORY AND PHYSICAL CHIEF COMPLAINT Aspiration pneumonia with asthma exacerbation associated with respiratory failure. HISTORY This 31-year-old female with cerebral palsy and multiple flexion contractures, asthma, is admitted for respiratory failure. Caregivers are no longer present. I am told that the patient was receiving feedings via her G-tube at home when she began to cough. She was found to have low O2 sats at about 70%. She was brought to this emergency department where she was placed on oxygen with improvement. She was given Tylenol, along with antibiotics. She then had a sudden event after midnight where she began to gasp for air, had decreased level of consciousness. She was electively intubated due to persistent hypoxia. Currently on examination, the patient does have expiratory wheezes, and some rales. She was given Zosyn, tobramycin and Zithromax. Already, chest x-ray does show a left lower lobe infiltrate. ABG is consistent with acute hypoxic hypercapnic respiratory failure. PAST MEDICAL HISTORY 1. Cerebral palsy with multiple flexion contractures and patient has a baclofen implantable pump for severe spasms. 2. Severe scoliosis. 3. Asthma. 4. GERD. 5. Dysphagia with PEG tube in place. 6. Right hip surgery. 7. Previous tracheostomy. This is now closed. ALLERGIES Morphine and codeine. HOME MEDICATIONS 1. Albuterol nebulizer q.4 hours. 2. Omeprazole 40 mg daily. 3. Singulair 10 mg daily. 4. Skin care lotions. 5. Zofran 4 mg ODT q.6 hours as needed. 6. I believe patient takes Prilosec 40 mg daily as well, possibly MiraLAX, tussin and Maalox. 7. Jevity 237 mL to the PEG tube q.i.d. FAMILY HISTORY Unit #: [id number] #: [id number] Patient: ROEL HODGES per old records. SOCIAL HISTORY I am told that the patient lives with caregivers. She currently does not smoke or drink alcohol. REVIEW OF SYSTEMS Impossible to obtain as patient is currently sedated on a ventilator. PHYSICAL EXAMINATION GENERAL APPEARANCE: Thin, sedated, 31-year-old female who looks younger than stated age. VITAL SIGNS: Temperature 100.6, initial heart rate 153, currently is 113. O2 saturation currently is 94% on FIO2 of 50%. Blood pressure is 100/66, respirations 19. HEENT: Eyes PERRLA. Pharynx - patient is orally intubated. NECK: Her neck is rotated towards the right and flexed. CHEST: Expiratory wheezes and crackles. CARDIAC: Tachy S1 and S2 without murmur. ABDOMEN: Bowel sounds are diminished. The patient has a PEG tube in the mid abdomen, nontender. No hepatosplenomegaly or masses. EXTREMITIES: Notable for flexion contractures, no edema. NEUROLOGIC EXAM: The patient is sedated. Pupils react. She has severe flexion contractures and dextroscoliosis on exam. BACK EXAMINATION: Reveals severe dextroscoliosis. DIAGNOSTIC STUDIES LABORATORY: Admission labs - hematocrit 43.8, white blood count is 13.1, normal platelet count. Normal coags. SMA-12 - glucose is 279. Lactic acid 2. ABG post intubation - pH 7.16, pCO2 76, pO2 163. O2 saturation is 97.8% on a tidal volume of 400, PEEP of 5, AC 16, FIO2 of 50%. Cardiac markers are negative. IMAGING: Chest x-ray - left lower lobe infiltrate. Severe dextroscoliosis. CARDIOVASCULAR: EKG - sinus tachycardia, rate [address] wave abnormalities. ASSESSMENT 1. Aspiration pneumonia. 2. Asthma exacerbation with acute hypoxic/hypercapnic respiratory failure. 3. Event in the emergency room where patient did have decreased level of consciousness and was gasping. She then dropped her O2 sats and required intubation. 4. Cerebral palsy with severe dextroscoliosis, flexion contractures and spasms with a baclofen implantable pump in place. 5. Severe scoliosis. 6. Hyperglycemia which could be reactive. 7. Dysphagia with PEG tube in place. 8. Prior trach which is now closed. Unit #: [id number] #: [id number] Patient: ROEL HODGES 9. Gastroesophageal reflux disease. PLANS 1. IV fluids, hold tube feeds for now. 2. Zosyn, and Levaquin pending cultures. Will write for Duo-Nebs and steroids. 3. Pulmonary consultation. 4. DVT and gastritis prophylaxis. 5. Obtain EEG. If not awakening, will obtain a CT scan. 6. Obtain urinalysis. 7. Accu-Cheks, check hemoglobin A1c, and if needed, will write for low dose sliding scale insulin. 8. Light sedation. Critical care time spent in evaluating this patient was 35 minutes. Dictated by Ruthie Zamora M.D. AML/df TD: 01/09/2017 05:55 JOB #: [id number] HISTORY AND PHYSICAL X Ruthie Zamora MD X HISTORY AND PHYSICAL
--- NOTE | ~2017-01-08 | EKG ---
PATIENT: ROEL HODGES UNIT #: [id number] Ventricular Rate: 147 BPM Atrial Rate: 147 BPM P-R Interval: 68 ms QRS Duration: 64 ms Q-T Interval: 332 ms QTC Calculation(Bezet): 519 ms P Langdon: 71 degrees Calculated R Langdon: 71 degrees Calculated T Langdon: 63 degrees Diagnosis Line: Sinus tachycardia with short [place] Diagnosis Line: Nonspecific ST and T wave abnormality Diagnosis Line: Abnormal ECG Diagnosis Line: When compared with ECG of 13-NOV-2015 19:57, Diagnosis Line: No significant change was found Diagnosis Line: Confirmed by MELONY ACEVES MD ([id number]) on Diagnosis Line: 01/09/2017 4:13:20 PM INTERPRETING MD: KETAN GARCIA
--- NOTE | ~2017-01-08 | CR72 ---
[facility] A Service of [facility] RADIOLOGY TEXT RESULTS PATIENT: ROEL HODGES LOCATION: [place] [id number] : [birth year] UNIT #: [id number] AGE: [address]: Brigida Yin MD SEX: F ORDER DR: [id number] [facility] [address] [facility]. [place], [place] [address] [id number] I MR#: [id number] Acc #: [id number] NAME: ROEL HODGES : 1985 SEX: F STUDY DATE/TIME: 01/14/2017 4:34 UNIT: [facility] ROOM: [facility] STUDY DESCRIPTION: CR Chest Single View Portable Attending Physician: Brigida Yin M.D. Ordering Physician: Sheeba Eisenberg M.D. Primary Care Physician: Livia Medeiros M.D. MEDICAL IMAGING REPORT This report is preliminary unless electronic signature is present EXAM AP portable chest, 01/14/2017. HISTORY Endotracheal tube in place. Shortness of breath. Aspiration pneumonia. Respiratory failure on the ventilator. COMPARISON STUDIES AP portable chest, 01/13/2017; CT chest, 01/11/2017. FINDINGS Consolidative type changes within the right mid to lower lung zone and ill-defined infiltrates in medial and left lower lobe, probably not significantly changed. Stable small to moderate right pleural effusion. Right arm-approach PICC and ET tube are stable in position. No visible pneumothorax. Scoliosis. IMPRESSION Right mid to lower lung zone consolidation with small to moderate right pleural effusion and left perihilar medial and left basilar infiltrates, without significant change from 01/13/2017. Supporting lines and tubes appear stable. No visible pneumothorax. Dictated by... Renetta Mcdowell M.D. THIS IS AN ELECTRONICALLY VERIFIED REPORT Renetta Mcdowell M.D. at 01/14/2017 9:58 PM VERENA/yana [facility] A Service of [facility] RADIOLOGY TEXT RESULTS PATIENT: ROEL HODGES LOCATION: [address] : [birth year] UNIT #: [id number] AGE: [address]: Brigida Yin MD SEX: F ORDER DR: TD: 01/14/2017 13:14 JOB #: [id number] MEDICAL IMAGING REPORT COPY
--- NOTE | ~2017-01-08 | CR72 ---
[facility] A Service of [facility] & [facility] RADIOLOGY TEXT RESULTS PATIENT: ROEL HODGES LOCATION: [facility] 568-01 : [birth year] UNIT #: [id number] AGE: [address]: Brigida Yin MD SEX: F ORDER DR: [id number] [facility] [address] [facility]. [place], [place] [address] [id number] I MR#: [id number] Acc #: [id number] NAME: ROEL HODGES : 1985 SEX: F STUDY DATE/TIME: 01/26/2017 18:23 UNIT: [facility] ROOM: [facility] STUDY DESCRIPTION: CR Chest Single View Portable Attending Physician: Brigida Yin M.D. Ordering Physician: Brigida Yin M.D. Primary Care Physician: Livia Medeiros M.D. MEDICAL IMAGING REPORT This report is preliminary unless electronic signature is present EXAM Portable chest HISTORY Severe shortness of air history of pneumonia. Symptoms for 17 days. COMPARISON 01/25/2017 FINDINGS Portable view of the chest demonstrates marked deformity of the thorax secondary to severe scoliosis. Hyperinflation of the left lung hypoinflation of the right lung. The focal parenchymal opacity seen in the right upper lung on the prior chest radiograph of 01/24/2017, appears to have resolved. There is a minimal amount of pleural thickening along the minor fissure. No effusions. Heart, mediastinum unremarkable. Dictated by... Fan Vega M.D. THIS IS AN ELECTRONICALLY VERIFIED REPORT Fan Vega M.D. at 01/27/2017 8:09 PM MOIZ/mike TD: 01/27/2017 04:29 JOB #: [id number] MEDICAL IMAGING REPORT Page 1 of 1 COPY
--- NOTE | ~2017-01-08 | CT57 ---
[facility] A Service of [facility] & [facility] RADIOLOGY TEXT RESULTS PATIENT: ROEL HODGES LOCATION: [address] : 83 UNIT #: [id number] AGE: [address]: Byron Kent MD SEX: F ORDER DR: [id number] [facility] [address] [facility]. [place], [place] [address] [id number] I MR#: [id number] Acc #: [id number] NAME: ROEL HODGES : 1985 SEX: F STUDY DATE/TIME: 01/11/2017 12:47 UNIT: [facility] ROOM: [facility] STUDY DESCRIPTION: CT Chest Wo Cont Attending Physician: Byron Kent M.D. Ordering Physician: Sheeba Eisenberg M.D. Primary Care Physician: Livia Medeiros M.D. MEDICAL IMAGING REPORT This report is preliminary unless electronic signature is present EXAM CT chest without contrast DATE 01/11/2017 at 1247 HISTORY Shortness of breath since 01/08/2017. Pneumonia. Respiratory failure. History of cerebral palsy and seizures. Previous history of gastrostomy tube and tracheostomy placement and subsequent removal. COMPARISON AP portable chest 01/11/2017. CT chest PE protocol 05/03/2013. PROCEDURE 5 mm axial images through the chest without contrast. Sagittal and coronal reformatted images were obtained. This CT exam was performed with one or more of the following radiation dose reduction techniques: automatic exposure control, adjustment of mA and/or kV according to patient size, and iterative reconstruction. FINDINGS There is severe thoracolumbar dextroscoliosis. Dense airspace disease changes are demonstrated posteromedially within the bilateral lower lobes, and more ill-defined infiltrates are also present in the perihilar, bilateral upper lobes, and right middle lobe. Small bilateral pleural effusions are present, the right layering to a depth of 2.3 cm, the left layering to a depth of 1.4 cm. ET tube tip terminates approximately 2 cm above the level of the mohsen. 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 There is marked air-fluid distension of the STS. [facility] A Service of [facility] RADIOLOGY TEXT RESULTS PATIENT: ROEL HODGES LOCATION: [facility] CICCU2-04 : 83 UNIT #: [id number] AGE: [address]: Byron Kent MD SEX: F ORDER DR: upper thoracic esophagus. Heart size is within normal limits, with mediastinum deviated toward the left, similar to prior exam. No pneumothorax. Right arm approach PICC extends to the cavoatrial junction. A catheter is seen within the thoracolumbar spinal canal, with the tip terminating near the T11-12 level. There is small quantity perihepatic ascites. There is generalized body wall edema. IMPRESSION 1. Dense posterior medial bibasilar consolidations with patchy bilateral upper lobe and right middle lobe perihilar infiltrates. Findings may represent changes of multifocal pneumonia. Aspiration is also a consideration, given the significant air-fluid distension of the upper thoracic esophagus. 2. Small bilateral pleural effusions right greater than left. 3. There is narrowing of the lower thoracic trachea and proximal mainstem bronchi suggesting features of tracheobronchial malacia. This, too, may contribute to the patient's aforementioned airspace disease. 4. Generalized body wall edema. 5. Small quantity perihepatic ascites. Dictated by... Renetta Mcdowell M.D. THIS IS AN ELECTRONICALLY VERIFIED REPORT Renetta Mcdowell M.D. at 01/12/2017 10:07 PM RENAE/ori TD: 01/11/2017 16:24 JOB #: [id number] MEDICAL IMAGING REPORT COPY
--- NOTE | ~2017-01-08 | CR72 ---
[facility] A Service of [facility] & [facility] RADIOLOGY TEXT RESULTS PATIENT: ROEL HODGES LOCATION: [address] : [birth year] UNIT #: [id number] AGE: [address]: Brigida Yin MD SEX: F ORDER DR: [id number] [facility] [address] [facility]. [place], [place] [address] [id number] I MR#: [id number] Acc #: [id number] NAME: ROEL HODGES : 1985 SEX: F STUDY DATE/TIME: 01/21/2017 4:57 UNIT: [facility] PCU ROOM: [facility] STUDY DESCRIPTION: CR Chest Single View Portable Attending Physician: Brigida Yin M.D. Ordering Physician: Sheeba Eisenberg M.D. Primary Care Physician: Livia Medeiros M.D. MEDICAL IMAGING REPORT This report is preliminary unless electronic signature is present EXAM AP portable chest, 01/21/2017 HISTORY Shortness of air. Pneumonia. Followup cardiopulmonary status. TECHNIQUE AP portable chest x-ray. FINDINGS Right lower lung opacification and volume loss visible on yesterday's study has improved today with re-expansion of the right lower lung. Mild infiltrate or linear atelectasis right midlung. Lungs otherwise clear. Heart size normal. Severe chronic thoracic deformity including profound scoliosis. PICC in good position. IMPRESSION Improved right lung base aeration and expansion since yesterday. Dictated by... Hermann Smiley M.D. THIS IS AN ELECTRONICALLY VERIFIED REPORT Hermann Smiley M.D. at 01/22/2017 9:56 PM NELLY/linh TD: 01/22/2017 08:35 JOB #: [id number] MEDICAL IMAGING REPORT COPY
--- NOTE | ~2017-01-08 | CR72 ---
[facility] A Service of [facility] & [facility] RADIOLOGY TEXT RESULTS PATIENT: ROEL HODGES LOCATION: [address] : 83 UNIT #: [id number] AGE: [address]: Byron Kent MD SEX: F ORDER DR: [id number] [facility] [address] [facility]. [place], [place] [address] [id number] I MR#: [id number] Acc #: [id number] NAME: ROEL HODGES : 1985 SEX: F STUDY DATE/TIME: 01/09/2017 21:49 UNIT: [facility] ROOM: [facility] STUDY DESCRIPTION: CR Chest Single View Portable Attending Physician: Byron Kent M.D. Ordering Physician: Byron Kent M.D. Primary Care Physician: Livia Medeiros M.D. MEDICAL IMAGING REPORT This report is preliminary unless electronic signature is present EXAM Portable chest HISTORY PICC placement. FINDINGS Right arm approach PICC tip is in the right atrium 6 cm beyond the junction of the SVC and right atrium. ETT tip is 5 cm above the mohsen. Severe right thoracolumbar scoliosis measuring approximately 80 degrees. No focal infiltrates are identified. Dictated by... Nacho Richter M.D. THIS IS AN ELECTRONICALLY VERIFIED REPORT Nacho Richter M.D. at 01/10/2017 3:57 PM DFL/mera TD: 01/10/2017 09:37 JOB #: [id number] MEDICAL IMAGING REPORT COPY
--- NOTE | ~2017-01-08 | EE ---
Unit #: [id number] #: [id number] Patient: ROEL HODGES [id number] [address] [address] [id number] I MR#: [id number] NAME: ROEL HODGES : 1985 SEX: F STUDY DATE/TIME: 01/09/2017 UNIT: [facility] ROOM: [facility] STUDY DESCRIPTION: EEG Attending Physician: Byron Kent M.D. Referring Physician: Ruthie Zamora M.D. Primary Care Physician: Livia Medeiros M.D. NEURODIAGNOSTICS REPORT EXAM EEG REASON FOR THE STUDY History of seizures. EEG DESCRIPTION This is an inpatient, digitally recorded multi-montage adult EEG with leads placed according to the International 10-20 System. Hyperventilation and photic stimulation was not done. This was a portable recording. Though the patient was asleep through most of the recording but when aroused there was 8-9 Hz posterior background. The patient had no asymmetry, no seizure, no interictal discharges. No clinical events were seen. Hyperventilation and photic stimulation was not done. This was a reactive EEG. IMPRESSION Essential normal EEG. Nothing suggesting seizure or status or interictal discharges. Clinical correlation is recommended. An EEG like this does not rule out epilepsy. Dictated by... Ney Riggins/aaron TD: 01/10/2017 05:51 JOB #: [id number] Unit #: [id number] #: [id number] Patient: ROEL HODGES NEURODIAGNOSTICS REPORT X Len Brennan MD NEURODIAGNOSTICS REPORT
--- NOTE | ~2017-01-08 | CR72 ---
[facility] A Service of [facility] & [facility] RADIOLOGY TEXT RESULTS PATIENT: ROEL HODGES LOCATION: [address] : [birth year] UNIT #: [id number] AGE: [address]: Byron Kent MD SEX: F ORDER DR: [id number] [facility] [address] [facility]. [place], [place] [address] [id number] I MR#: [id number] Acc #: [id number] NAME: ROEL HODGES : 1985 SEX: F STUDY DATE/TIME: 01/09/2017 0137 UNIT: [facility] ROOM: [facility] STUDY DESCRIPTION: CR Chest Single View Portable Attending Physician: Byron Kent M.D. Ordering Physician: Joe Brown M.D. Primary Care Physician: Livia Medeiros M.D. MEDICAL IMAGING REPORT This report is preliminary unless electronic signature is present EXAM Portable chest, 01/09 at 0137 hours. INDICATION Endotracheal tube placement tonight. FINDINGS 2 views of the chest were obtained. They are compared with 01/08/2017 at 2214 hours. The exam is markedly limited due to severe scoliosis and extremely poor positioning. An endotracheal tube is present, however, and it does appear to be well located within the mid trachea. There are some air bronchograms in the left lower lung. There may be some infiltrate in the right upper lobe. IMPRESSION Extremely limited exam due to poor positioning and scoliosis. ET tube appears well positioned. There may be developing right upper lobe and left basilar infiltrates. Continued followup is recommended. Dictated by... John Edward Jr., M.D. THIS IS AN ELECTRONICALLY VERIFIED REPORT John Edward Jr., M.D. at 01/09/2017 9:59 PM NASH/hanny TD: 01/09/2017 10:42 JOB #: [id number] MEDICAL IMAGING REPORT COPY
--- NOTE | ~2017-01-08 | CR72 ---
[facility] A Service of [facility] RADIOLOGY TEXT RESULTS PATIENT: ROEL HODGES LOCATION: [address] : 83 UNIT #: [id number] AGE: [address]: Brigida Yin MD SEX: F ORDER DR: [id number] [facility] [address] [facility]. [place], [place] [address] [id number] I MR#: [id number] Acc #: [id number] NAME: ROEL HODGES : 1985 SEX: F STUDY DATE/TIME: 01/20/2017 3:29 UNIT: [facility] ROOM: [facility] STUDY DESCRIPTION: CR Chest Single View Portable Attending Physician: Brigida Yin M.D. Ordering Physician: Brigida Yin M.D. Primary Care Physician: Livia Medeiros M.D. MEDICAL IMAGING REPORT This report is preliminary unless electronic signature is present EXAM AP portable chest 01/20/2017 HISTORY Follow up respiratory failure. TECHNIQUE AP portable chest x-ray. FINDINGS Right lung base opacification and volume loss are new since yesterday but recurrent when compared with several older studies. Atelectasis related to central mucous plugging is a consideration. Remaining portions of both lungs appear clear. PICC in good position. Heart size and pulmonary vascularity are normal. Severe chronic thoracic cage deformity with profound scoliosis. IMPRESSION The new right lung volume loss since yesterday. STAT * RESULT Dictated by... Hermann Smiley M.D. THIS IS AN ELECTRONICALLY VERIFIED REPORT Hermann Smiley M.D. at 01/20/2017 6:02 AM RGW/mike [facility] A Service of [facility] RADIOLOGY TEXT RESULTS PATIENT: ROEL HODGES [address] [birth year] UNIT #: [id number] AGE: [address]: Brigida Yin MD SEX: F ORDER DR: TD: 01/20/2017 04:29 JOB #: [id number] MEDICAL IMAGING REPORT COPY
--- NOTE | ~2017-01-08 | OR ---
Unit #: [id number] #: [id number] Patient: ROEL HODGES [id number] [address] [place], [place] [address] [id number] I MR#: [id number] NAME: ROEL HODGES ROOM: 568 Date of Procedure: 01/22/2017 Admission Date: 01/09/2017 Surgeon: Mayco Gutierrez M.D. : 1985 Attending Physician: Brigida Yin M.D. Primary Care Physician: Livia Medeiros M.D. OPERATIVE REPORT PRIMARY CARE PHYSICIAN Livia Medeiros M.D. PREOPERATIVE DIAGNOSES The patient has history of aspiration pneumonia. The purpose of the procedure is to convert from gastrostomy to jejunostomy tube. PROCEDURES PERFORMED Upper gastrointestinal endoscopy and conversion of gastrostomy to jejunostomy tube endoscopically. POSTOPERATIVE DIAGNOSES The patient has history of aspiration pneumonia. The purpose of the procedure is to convert from gastrostomy to jejunostomy tube. RECOMMENDATION Please see the chart for postoperative care of the PEJ tube and feeding instructions. SEDATION USED General anesthesia. In view of the fact, the patient had unstable respiratory status, she was intubated and the procedure was done in the main OR under general anesthesia. DESCRIPTION OF PROCEDURE Following detailed explanation of potential risks and complications of an upper endoscopy namely perforation, bleeding, and complication related to sedation, the patient was laid in the appropriate position in the OR table. Lubricated tip of the Olympus video upper endoscope was passed through the bite block into the proximal esophagus under direct vision. The entire esophageal mucosa was examined and appeared normal. The scope was then advanced into the gastric cavity, whereupon a medium-sized hiatus hernia was noted. In addition, brownish secretions were seen indicating possibly altered food residue. The gastrostomy tube was then removed and through the matured gastrocutaneous fistula, a jejunostomy tube was placed. Threaded needle of the tube was then grasped using a biopsy forceps and the tube was directed towards the antrum and pylorus. It was placed in the third part of duodenum and gradually the biopsy forceps was then withdrawn; although, there was minimal loop in the stomach. This was unavoidable due to patient's anatomy. The gastric balloon was inflated and it was made sure that the tube is quite stable in its position. The scope was then withdrawn. The patient returned to the recovery area. She Unit #: [id number] #: [id number] Patient: ROEL HODGES tolerated the procedure without any postprocedure complications. Dictated by.Ney Saleh/laith TD: 01/22/2017 11:42 JOB #: [id number] OPERATIVE REPORT Page 1 of 1 X Mayco Gutierrez MD X PROCEDURE OPERATIVE NOTE
--- NOTE | ~2017-01-08 | FU ---
[facility] Nutrition Therapy DATE: 01/12/17 Patient: ROEL HODGES Physician: CHASE Address: [address] [place] [address] Room/Bed: [address], Zip: [place] [address] Admit Date: 01/09/17 Date of : [birth year] Height: 4 10 Weight: 99 45 NUTRITION MONITORING/FOLLOW-UP: Reason: PT SEEN FOR FOLLOW-UP/ENTERAL NUTRITION SUPPORT DX: ASPIRATION PNA W/RESP FAILURE, ASTHMA EXAC Anthropometrics: 4'10", WT: 99# (45 KG), BMI: 20.7 -ADMIT WEIGHT: 80#; WEIGHTS HAVE RANGED 66-99# SINCE ADMIT Labs: GLU: 196, CREAT: 0.4, CA+:7.2, ALB: 2.7, ALT: 69, K+:3.3 Meds: FENTANTYL, PROTONIX, MIRALAX, VERSED, SENOKOT, IV LEVAQUIN, FENTANYL, SOLU-MEDROL, ZOFRAN I&O's: 3553/950 Skin: VAGINAL 2+ EDEMA Estimated Nutrition Needs: [id number] KCAL 43-65 G PRO Assessment: CHART REVIEWED AND EVENTS NOTED. PT SEEN FOR ENTERAL NUTRITION SUPPORT FOLLOW-UP. PT CONTINUES TO BE INTUBATED AND SEDATED RECEIVING ALTERNATIVE NUTRITION OF JEVITY 1.2 @ 45 ML/HR. PER RN AND CHART, PT TOLERATING ENTERAL NUTRITION AND NOTING NO ISSUES AT THIS TIME. OF NOTE, PEG TUBE WAS REPLACED ON 01/11/17. NO FAMILY IN ROOM AT THIS TIME. RD TO CONTINUE TO FOLLOW. SEE RECOMMENDATIONS BELOW. -TUBE FEEDS PROVIDE 1296 KCAL, 60 G PRO, 875 ML FREE H20 Dx: INADEQUATE ORAL INTAKE R/T DX, CURRENT CONDITION AEB PT INTUBATED AND SEDATED, ALTERNATIVE NUTRITION SUPPORT IN PLACE. Intervention: 1. ENTERAL NUTRITION SUPPORT OF JEVITY 1.2 @ 45 ML/HR Monitoring, Evaluation and Goals: GOALS MET 1. ENTERAL NUTRITION; PROVIDE 100% ESTIMATED NUTRIENTS AT GOAL W/NO SIGNS OF INTOLERANCE 2. WEIGHTS; PROMOTE GRADUAL WEIGHT LOSS 3. LABS; WNL 4. GI; PROMOTE REGULAR GI FUNCTION MONITOR: -TF RATE/RESIDUALS -WEIGHTS -LABS (GLU, LYTES) [facility] Nutrition Therapy DATE: 01/12/17 Patient: ROEL HODGES Physician: CHASE Address: [address] [facility] Room/Bed: [address], Zip: [place] [address] Admit Date: 01/09/17 Date of : [birth year] Height: 4 10 Weight: 99 45 -EXTUBATION? Recommendations: 1. CONTINUE CURRENT ENTERAL NUTRITION SUPPORT OF JEVITY 1.2 @ 45 ML/HR CONTINUE FREE H20 FLUSHES PER MD 2. IF PT'S BLOOD SUGARS REMAIN ELEVATED, RECOMMEND TO CHANGE CURRENT ENTERAL NUTRITION SUPPORT TO GLUCERNA 1.2 @ 20 ML/HR, ADVANCE 10 ML q 4 HOURS TO GOAL RATE OF 45 ML/HR -PROVIDES 1296 KCAL, 65 G PRO, 875 ML FREE H20 ADD FREE H20 FLUSHES PER MD 3. OPTIMIZE BLOOD SUGAR CONTROL REGIMEN-PT'S BLOOD SUGARS ELEVATED RD WILL F/U PER PROTOCOL PT IS SEVERELY COMPROMISED Respectfully, RODOLFO MURRY MS, RD, LD Food and Nutritional Services [facility] cc: client file
--- NOTE | ~2017-01-08 | CR72 ---
[facility] A Service of [facility] RADIOLOGY TEXT RESULTS PATIENT: ROEL HODGES LOCATION: [address] : [birth year] UNIT #: [id number] AGE: [address]: Byron Kent MD SEX: F ORDER DR: [id number] [facility] [address] [facility]. [place], [place] [address] [id number] I MR#: [id number] Acc #: [id number] NAME: ROEL HODGES : 1985 SEX: F STUDY DATE/TIME: 01/11/2017 04:55 UNIT: [facility] ROOM: [facility] STUDY DESCRIPTION: CR Chest Single View Portable Attending Physician: Byron Kent M.D. Ordering Physician: Sandra Lion M.D. Primary Care Physician: Livia Medeiros M.D. MEDICAL IMAGING REPORT This report is preliminary unless electronic signature is present EXAM Portable chest 01/11/2017 04:55 INDICATION Shortness of air. Endotracheal tube placement. FINDINGS AP portable views of the chest are compared with 01/10/2017. Again seen is severe scoliosis. ET tube and right arm PICC are in good position. Bilateral perihilar infiltrates are stable. There is slight interval increase in a small right pleural effusion. No pneumothorax. Dictated by... John Edward Jr., M.D. THIS IS AN ELECTRONICALLY VERIFIED REPORT John Edward Jr., M.D. at 01/11/2017 10:03 PM NASH/maya TD: 01/11/2017 08:39 JOB #: [id number] MEDICAL IMAGING REPORT COPY
--- NOTE | ~2017-01-08 | CO ---
Unit #: [id number] #: [id number] Patient: ROEL HODGES [id number] [address] [place], [place] [address] [id number] I MR#: [id number] NAME: ROEL HODGES ROOM: [facility] Age: 31 Sex: F Admission Date: 01/09/2017 : 1985 Attending Physician: Byron Kent M.D. Primary Care Physician: Livia Medeiros M.D. Consultation Date: 01/09/2017 CONSULTATION REPORT REASON FOR CONSULT Vent management. CHIEF COMPLAINT Aspiration pneumonia with asthma exacerbation. HISTORY OF PRESENT ILLNESS This is very unfortunate 31-year-old female with a history of cerebral palsy and multiple flexion contractures, asthma, who presented to the emergency room with respiratory distress. Per medical records patient was receiving feeding via her G-tube at home when she suddenly began to cough. Patient went immediately in severe respiratory distress after and her oxygen saturation was found to be in mid 70s. Patient was brought to the emergency room via EMS and she was initially stabilized on just conservative management. However, all of a sudden she went in another respiratory distress episode and she was electively intubated due to persistent hypoxia. REVIEW OF SYSTEMS Twelve-point review of systems was unable to be obtained due to patient condition. PAST MEDICAL HISTORY 1. Cerebral palsy. 2. Multiple flexion contractures. 3. Severe scoliosis. 4. Asthma. 5. GERD. 6. Dysphagia. PAST SURGICAL HISTORY 1. PEG tube placement. 2. Right hip surgery. 3. Previous tracheostomy. 4. Implantable pump. ALLERGIES Morphine and codeine. HOME MEDICATION 1. Omeprazole. 2. Singulair. 3. Zofran. Unit #: [id number] #: [id number] Patient: ROEL HODGES 4. Albuterol. 5. MiraLAX. FAMILY HISTORY Coronary artery disease. SOCIAL HISTORY Patient lives with her caregiver; no history of alcohol, smoking or drug abuse. PHYSICAL EXAMINATION GENERAL: The patient is on the vent at this point. VITAL SIGNS: Temperature 100.6. Heart rate 140. O2 saturation 94% on 50% FiO2. Blood pressure 105/63. HEENT: Atraumatic and normocephalic. PERRLA. EOMI. NECK: Rotated and flexed. CHEST: Bilateral diffuse wheezing and rhonchi. HEART: S1, S2. No murmur, gallops or rubs. ABDOMEN: Soft, nontender. Bowel sounds positive. EXTREMITIES: Multiple flexion contractures. No edema. PREDATORY GAME HUNTER: Patient is sedated on the vent. Pupils are reactive. She has severe flexion contractures and dextroscoliosis on exam. DIAGNOSTIC STUDIES LABORATORY: Creatinine 0.3, chloride 105, calcium 7.9, white blood count 19.8, hemoglobin 13.6. IMAGING: Chest x-ray is very limited due to her body position however there is concern of aspiration on the right side. ASSESSMENT 1. Acute hypoxic respiratory failure. 2. Aspiration pneumonia. 3. Asthma exacerbation. 4. Severe scoliosis. 5. Cerebral palsy. 6. Hyperglycemia. PLAN 1. Patient is very critical. Will continue patient on the vent and reassess daily. 2. Will readdress tracheostomy with family as she will likely need it. 3. IV steroid and bronchodilator. 4. IV antibiotics pending culture. 5. She may need bronchoscopy before extubation. 6. IV hydration. 7. DVT and GI prophylaxis. Critical care time spent on this patient was 36 minutes. Dictated by... Derek Lion M.D. EA/cf Unit #: [id number] #: [id number] Patient: ROEL HODGES TD: 01/09/2017 19:02 JOB #: [id number] CONSULTATION REPORT X DEREK MCCORD MD CONSULTATION REPORT
--- NOTE | ~2017-01-08 | CO ---
Unit #: [id number] #: [id number] Patient: ROEL HODGES [id number] [address] [address] [id number] I MR#: [id number] NAME: ROEL HODGES ROOM: [facility] Age: 31 Sex: F Admission Date: 01/09/2017 : 1985 Attending Physician: Brigida Yin M.D. Primary Care Physician: Livia Medeiros M.D. Consultation Date: 01/10/2017 CONSULTATION REPORT PRIMARY CARE PHYSICIAN Livia Medeiros M.D. REASON FOR CONSULTATION Malfunctioning of the PEG tube. HISTORY OF PRESENT ILLNESS Ms. Hodges is a 31-year-old female with history of cerebral palsy, and the patient is bedridden and is admitted with aspiration pneumonia and respiratory distress, and the patient is currently intubated. I have been asked to see her because of the malfunctioning of the PEG tube with leakage around the PEG tube. I am not sure who and where the initial PEG tube was placed. PAST MEDICAL HISTORY Significant for history of cerebral palsy, flexion contractures, severe scoliosis, bronchial asthma, gastroesophageal reflux. PREVIOUS SURGERY Included tracheostomy, right hip surgery, and PEG placement. ALLERGIES She is allergic to morphine and codeine. HOME MEDICATIONS Include albuterol nebulizer, omeprazole, Singulair, Zofran, MiraLAX, Jevity. FAMILY HISTORY Coronary artery disease, but no family history of colon or pancreatic cancer, or liver disease. SOCIAL HISTORY Lives without caregivers. Never smoke or drink alcohol. REVIEW OF SYSTEMS Detailed review of organ systems is not possible due to the fact the patient is nonverbal, intubated. PHYSICAL EXAMINATION GENERAL: She is sedated and appears young and at times opens her eyes and looks intently around. VITAL SIGNS: Stable with a temperature of 98.8, her pulse is 108 per minute and regular, respiratory rate is 20, and blood pressure is 142/77. Unit #: [id number] #: [id number] Patient: ROEL HODGES HEENT: She has mild pallor. There being no icterus, lymphadenopathy, or peripheral edema. CARDIOVASCULAR: Normal heart sounds with sinus tachycardia. LUNGS: On auscultation of the lungs reveal bilateral diminished symmetric air entry along with crepitations at lung bases. ABDOMEN: Soft. Palpation is difficult because of severe scoliosis. Liver and spleen are not palpable. Bowel sounds normal. PEG site shows a gutter around the PEG tube from minimal pressure necrosis of the skin with leakage around the tube. DIAGNOSTIC STUDIES LABORATORY RESULTS: Shows an INR of 1.0. Serum chemistry shows normal BUN and creatinine. Electrolytes, albumin of 2.9. LFTs are normal. The patient's white count on admission was 19,000, but it is now 6.8; hemoglobin is 11.3; and platelet count is 112. CLINICAL IMPRESSION The patient with malfunctioning percutaneous endoscopic gastrostomy tube, cerebral palsy, acute respiratory failure. MANAGEMENT PLAN We will confirm to the PEG tube is in place by Gastrografin study and then change the PEG tube to a higher [place] tube tomorrow. The above plan was discussed with the patient's nurse. Thank you for asking me to see this youngster. I appreciate the consult. Dictated by... eNy Bauer/laith TD: 01/13/2017 06:17 JOB #: [id number] Ruthie Zamora M.D. CONSULTATION REPORT X Mayco Gutierrez MD CONSULTATION REPORT
--- NOTE | ~2017-01-08 | DS ---
Unit #: [id number] #: [id number] Patient: ROEL HODGES [id number] [address] [place], [place] [address] [id number] MR#: [id number] NAME: ROEL HODGES ROOM: 568 Age: 31 Sex: F Admission Date: 01/09/2017 : 1985 Discharge Date: Attending Physician: Brigida Yin M.D. Primary Care Physician: Livia Medeiros M.D. DISCHARGE SUMMARY REASON FOR ADMISSION Aspiration pneumonia, acute respiratory failure. HISTORY OF PRESENT ILLNESS/HOSPITAL COURSE The patient is a 31-year-old female, who has a past medical history of cerebral palsy with multiple flexion contractures, severe failure to thrive secondary to malnutrition, protein deficiency as well as underlying history of asthma. She was noted to be acutely hypoxic in the emergency room. She was subsequently electively intubated secondary to persistent hypoxia, probably placed on IV antibiotics and placed in the ICU for ongoing care. Through her ICU course, she was followed by [facility]. She had a fairly prolonged hospital course, undergoing bronchoscopy eventually with several weaning attempts, was able to be weaned, placed on BiPAP, subsequently taken back to the telemetry floor. While she was on telemetry subsequently, her respiratory status declined. She was sent back to the ICU, placed back on BiPAP off and on. She was placed on IV Solu-Medrol, aerosols as well as IV antibiotics for the aforementioned aspiration. She has currently completed her antibiotic course. Off and on through hospital course, she does have a prior history of a PEG tube placement secondary to malfunction as well as increased risk for aspiration as well as difficulty tolerating tube feeds. A consultation was placed to Dr. Gutierrez. The patient underwent advancement of the PEG tube into PEJ. Afterwards, secondary to anesthesia, the patient did have difficulty weaning off the ventilator, but eventually she was weaned after a PEJ tube placement under general anesthesia. At this point in time, she is currently at baseline. Overall, her condition and prognosis are poor. Her chance of readmission is quite high. She has had off and on issues with difficulty tolerating tube feeds and is at high risk for aspiration and does have a history of failure to thrive as well as very poor nutritional status. FINAL DISCHARGE DIAGNOSES 1. Acute hypoxic respiratory failure. 2. Aspiration pneumonia. 3. Percutaneous endoscopic gastrostomy tube malfunction with advancement into PEJ. 4. Cerebral palsy. Unit #: [id number] #: [id number] Patient: ROEL HODGES 5. Multiple flexion contractures. 6. Status post baclofen pump in the past secondary to severe spastic disorder. 7. Severe scoliosis. 8. Asthma. 9. Gastroesophageal reflux disease. 10. Chronic dysphagia. 11. Prior history of tracheostomy placement. 12. Severe failure to thrive. 13. Severe protein malnutrition. DISCHARGE DISPOSITION Back to senior living. DISCHARGE MEDICATIONS Are as follows; DuoNeb aerosol solution q.6 hours scheduled, q.2 p.r.n.; Tylenol 650 mg G-tube q.8 p.r.n.; Benadryl 25 mg G-tube q.6 p.r.n.; Tussin 15 mg G-tube q.4 p.r.n.; MiraLAX as directed; Lasix 20 mg PEG daily; Singulair daily; Prilosec 40 mg daily; Maalox p.r.n.; low-dose insulin with Accu-Cheks q.6 hours; Jevity 1.2 at 45 mL/hr; free water flush 150 to 200 mL q.4. DISCHARGE INSTRUCTIONS Follow up at senior living, BMP, CBC in approximately 3 to 4 days. DISCHARGE CONDITION Stable. DISPOSITION skilled nursing. PROGNOSIS Long-term, poor. Dictated by... Ney Chapin/laith TD: 01/27/2017 05:11 JOB #: [id number] DISCHARGE SUMMARY Page 1 of 1 X Brigida Yin MD X DISCHARGE SUMMARY
--- NOTE | ~2017-01-08 | CR72 ---
[facility] A Service of [facility] RADIOLOGY TEXT RESULTS PATIENT: ROEL HODGES LOCATION: [place] [address]-04 : [birth year] UNIT #: [id number] AGE: [address]: Brigida Yin MD SEX: F ORDER DR: [id number] [facility] [address] [place], [place] [address] [id number] I MR#: [id number] Acc #: [id number] NAME: ROEL HODGES : 1985 SEX: F STUDY DATE/TIME: 01/16/2017 4:19 UNIT: [facility] ROOM: [facility] STUDY DESCRIPTION: CR Chest Single View Portable Attending Physician: Brigida Yin M.D. Ordering Physician: Sheeba Eisenberg M.D. Primary Care Physician: Livia Medeiros M.D. MEDICAL IMAGING REPORT This report is preliminary unless electronic signature is present EXAM AP portable chest. DATE 01/16 1017 HISTORY Pneumonia and shortness of breath. Symptoms began 01/09/2017. Cerebral palsy. Asthma. COMPARISON AP portable chest 01/15/2017. CT chest 01/11/2017. FINDINGS Dense consolidative changes present in the right bij-kw-sxdii lung zone with layering right pleural effusion, probably not significantly changed. The previously described medial left basilar infiltrates are less conspicuous on today's examination. No definite right or left pneumothorax is seen. Severe thoracolumbar scoliosis. ET tube appears to have been retracted slightly and now is high-riding at the level of the thoracic inlet. Right IJ central line tip remains at the cavoatrial junction or upper right atrial level. IMPRESSION 1. The ET tube tip appears to have been retracted slightly and now is high riding at the level of the thoracic inlet. 2. Persistent dense consolidative type changes predominately in the right fco-ta-wnemm lung zone with layering right pleural effusion unchanged. There appears to be improved aeration in the medial left lung base compared to yesterday's study. [facility] A Service of [facility] RADIOLOGY TEXT RESULTS PATIENT: ROEL HODGES [address] [birth year] UNIT #: [id number] AGE: [address]: Brigida Yin MD SEX: F ORDER DR: Dictated by... Renetta Mcdowell M.D. THIS IS AN ELECTRONICALLY VERIFIED REPORT Renetta Mcdowell M.D. at 01/17/2017 1:51 AM VERENA/hanny TD: 01/16/2017 11:37 JOB #: [id number] MEDICAL IMAGING REPORT COPY
--- NOTE | ~2017-01-08 | CR72 ---
[facility] A Service of [facility] RADIOLOGY TEXT RESULTS PATIENT: ROEL HODGES LOCATION: [address] : [birth year] UNIT #: [id number] AGE: [address]: Brigida Yin MD SEX: F ORDER DR: [id number] [facility] [address] [facility] [place], [place] [address] [id number] MR#: [id number] Acc #: [id number] NAME: ROEL HODGES : 1985 SEX: F STUDY DATE/TIME: 01/19/2017 6:47 UNIT: [facility] ROOM: [facility] STUDY DESCRIPTION: CR Chest Single View Portable Attending Physician: Brigida Yin M.D. Ordering Physician: Brigida Yin M.D. Primary Care Physician: Livia Medeiros M.D. MEDICAL IMAGING REPORT This report is preliminary unless electronic signature is present EXAM Portable AP view of the chest COMPARISON January 19, 2017 at 05:12 a.m. and January 18, 2017 at 05:29 a.m. INDICATION 31-year-old female with dyspnea today. FINDINGS/IMPRESSION Evaluation of the chest is limited by nonstandard positioning. Right upper extremity PICC is again noted with the tip terminating in the lower SVC. There is separate tubing overlapping the abdomen and terminating near the expected location of the junction of the inferior vena cava and right atrium, grossly stable, although incompletely imaged on comparison. Heart size is within normal limits. No convincing evidence of adenopathy although again evaluation is limited due to nonstandard positioning and marked scoliosis. No evidence of pneumothorax. There is minimal blunting of the right costophrenic sulcus which may be chronic or reflective of trace pleural effusion. There actually may be minimal stable opacity in the right upper lobe abutting the fissure which could reflect atelectasis or pneumonia. Dictated by... Augie Prescott M.D. THIS IS AN ELECTRONICALLY VERIFIED REPORT Augie Prescott M.D. at 01/22/2017 9:55 PM LIZBETH/linh TD: 01/19/2017 11:24 JOB #: [id number] [facility] A Service of [facility] RADIOLOGY TEXT RESULTS PATIENT: ROEL HODGES LOCATION: [place] [address] : [birth year] UNIT #: [id number] AGE: [address]: Brigida Yin MD SEX: F ORDER DR: MEDICAL IMAGING REPORT COPY
--- NOTE | ~2017-01-08 | CR72 ---
[facility] A Service of [facility] & [facility] RADIOLOGY TEXT RESULTS PATIENT: ROEL HODGES LOCATION: [place] [address] : [birth year] UNIT #: [id number] AGE: [address]: Brigida Yin MD SEX: F ORDER DR: [id number] [facility] [address] [place], [place] [address] [id number] I MR#: [id number] Acc #: [id number] NAME: ROEL HODGES : 1985 SEX: F STUDY DATE/TIME: 01/22/2017 16:15 UNIT: [facility] ROOM: [facility] STUDY DESCRIPTION: CR Chest Single View Portable Attending Physician: Brigida Yin M.D. Ordering Physician: Sheeba Eisenberg M.D. Primary Care Physician: Livia Medeiros M.D. MEDICAL IMAGING REPORT This report is preliminary unless electronic signature is present EXAM Portable chest INDICATIONS 31-year-old female with hypoxia today. Compared with yesterday. FINDINGS Severe scoliosis and contractures. No acute-appearing infiltrate. Stable PICC line. Heart size stable. IMPRESSION No acute findings in the chest Dictated by... Bill Vega M.D. THIS IS AN ELECTRONICALLY VERIFIED REPORT Bill Vega M.D. at 01/23/2017 8:08 AM MARIA D/justino TD: 01/23/2017 06:55 JOB #: [id number] MEDICAL IMAGING REPORT Page 1 of 1 COPY
--- NOTE | ~2017-01-08 | XA166 ---
[facility] A Service of [facility] & [facility] RADIOLOGY TEXT RESULTS PATIENT: ROEL HODGES LOCATION: [address] : [birth year] UNIT #: [id number] AGE: [address]: Byron Kent MD SEX: F ORDER DR: [id number] [facility] [address] [facility] [place], [place] [address] [id number] I MR#: [id number] Acc #: [id number] NAME: ROEL HODGES : 1985 SEX: F STUDY DATE/TIME: 01/09/2017 13:27 [facility] STUDY DESCRIPTION: XA PICC Line Placement WO Port Attending Physician: Byron Kent M.D. Ordering Physician: Sandra Lion M.D. Primary Care Physician: Livia Medeiros M.D. MEDICAL IMAGING REPORT This report is preliminary unless electronic signature is present EXAM PICC line insertion, 01/09/2017 HISTORY IV access needed. PRE-PROCEDURE The procedure was explained to the patient and/or patient fundraising sale representative including risks, benefits, potential complications and potential for alternative forms of treatment. Informed consent was obtained, and prior to initiating the procedure a formal timeout procedure was performed. PROCEDURE Using full standard sterile barrier technique, including caps, gowns, gloves, masks, as well as sterile skin preparation and standard sterile draping, the right arm was prepped and draped in the usual fashion, and real-time sterile ultrasound guidance was used to localize an arm vein and to confirm vessel patency. A hard copy ultrasound image was recorded. After local anesthesia with 1% Xylocaine, the vein was punctured using real-time sterile ultrasound guidance, and an 0.018 guidewire was advanced into the superior vena cava, using fluoroscopic guidance. A 5 Estonian dual-lumen PICC was then measured and deployed with the tip positioned in the superior vena cava. The position of the line was documented with a radiographic image. The line was secured in place with an adhesive dressing and an antibiotic patch was applied. Total fluoro time was 0.5 minutes with single fluoroscopic spot image. IMPRESSION Successful placement of a 5 Estonian dual-lumen PowerPICC via the right arm under ultrasound and fluoroscopic guidance. The tip of the PICC is in good position in the superior vena cava. [facility] A Service of [facility] & [facility] RADIOLOGY TEXT RESULTS PATIENT: ROEL HODGES LOCATION: [place] [address]- : [birth year] UNIT #: [id number] AGE: [address]: Byron Kent MD SEX: F ORDER DR: Dictated by... Bj Baxter M.D. THIS IS AN ELECTRONICALLY VERIFIED REPORT Bj Baxter M.D. at 01/10/2017 11:48 AM PAU/moise TD: 01/10/2017 04:54 JOB #: [id number] MEDICAL IMAGING REPORT COPY
[2017-01-08 21:35] LABS: POC - CKMB 1.1 ng/mL (0.0-7.9); POC - TROPONIN <0.05 ng/mL (<=0.05)
[~2017-01-08 21:48] MED LIST: ALBUTEROL MININEB NEB; ALBUTEROL0.63 MG/3 INH; BACLOFEN; BACLOFEN PUMP; BACLOFEN PUMP SUBQ; BACLOFEN10 MG PO; BENADRYL A12.5 MG/1 GT; BENADRYL A12.5 MG/1 PO; CLEOCIN HCL300 M1 PO; JEVITY1000 M1 GT; LEVAQUIN PO; LEVAQUIN250 MG/10 GT; MAALOX ADVANCE1 EACH GT; MAALOX SUSPENS355 ML PO; MIRALAX17 GM GT; MIRALAX17 GM PO; NUTRITIONAL SUPPLEME PO; PERIDEX480 ML PO; PREDNISONE PO; PREDNISONE5 MG/5 M1 GT; PRILOSEC PEG; PROVENTIL0.83 MG/ML NEB; ROBITUSSIN100 MG/51 PO; SINGULAIR GT; SINGULAIR PO; SINGULAIR4 MG PO; TUSSIN15 MG/5 M1 GT; ZITHROMAX PO; [UNRECOGNIZED DRUG - SUPPLY]
[2017-01-08 21:52] LABS: BASOPHIL% 0.4 % (0-2.5); EOSINOPHIL% 0.3 % (0.0-7.0); HEMATOCRIT 43.8 % (35.0-45.0); HEMOGLOBIN 14.5 gm/dL (12.0-16.0); LYMPHOCYTE# 1.6 X10e3 (1.0-3.5); LYMPHOCYTE% 11.9 % (17.0-45.0); MEAN CELL VOLUME 92.3 FL (83-96); MEAN CORPUSCULAR HEMOGLOBIN 30.5 PG (28-34); MEAN CORPUSCULAR HGB CONC 33.1 g/dL (30-36); MEAN PLATELET VOLUME 10.5 FL (6.5-11.5); MONOCYTE# 0.8 X10e3 (0-1.0); MONOCYTE% 5.9 % (3.0-12.0); NEUTROPHIL# 10.7 X10e3 (1.5-7.1); NEUTROPHIL% 81.5 % (40-75); PLATELET COUNT 188 X10e3 (140-420); RED BLOOD COUNT 4.75 X10e (3.90-5.30); RED CELL DISTRIBUTION WIDTH 14.2 % (11.0-15.5); WHITE BLOOD COUNT 13.1 X10e3 (4.0-10.5)
[2017-01-08 22:11] LABS: DIFF IND NO
[2017-01-08 22:37] LABS: ALKALINE PHOSPHATASE 87 U/L (32-92); ALT (SGPT) 29 U/L (10-40); AST (SGOT) 36 U/L (10-42); BILIRUBIN, DIRECT 0.2 mg/dL (0.0-0.2); BILIRUBIN,INDIRECT 1.1 mg/dL (0.0-0.9); BILIRUBIN,TOTAL 1.3 mg/dL (0.2-2.0); BLOOD UREA NITROGEN 17 mg/dL (9-23); CALCIUM SERUM 8.5 mg/dL (8.4-10.2); CARBON DIOXIDE 26 mmol/L (22-31); CHLORIDE 100 mmol/L (100-111); CREATININE SERUM 0.5 mg/dL (0.6-1.4); GLOM FILT RATE Estimated ABOVE60 mL/min (>60); GLUCOSE FASTING 279 mg/dL (70-110); POTASSIUM 3.6 mmol/L (3.5-5.1); PROTEIN TOTAL SERUM 7.5 g/dL (6.0-8.3); SODIUM 136 mmol/L (135-145)
[2017-01-08 23:31] LABS: POC - CKMB <1.0 ng/mL (0.0-7.9); POC - TROPONIN <0.05 ng/mL (<=0.05)
[2017-01-09 00:15] LABS: PARTIAL THROMBOPLASTIN TIME 25.4 SECONDS (23.5-31.3); PROTHROMBIN TIME (PATIENT) 10.7 SECONDS (9.6-11.5)
[2017-01-09 01:36] LABS: ARTERIAL BLD GAS O2 SATURATION 97.8 % (90.0-100.0); ARTERIAL BLOOD GAS CARBOXY HB 0.4 %sat (0.0-9.0); ARTERIAL BLOOD GAS HCO3 26.9 mmol/L; ARTERIAL BLOOD GAS MET HB 0.8 %sat (0.0-2.0)
[2017-01-09 01:37] LABS: ARTERIAL BLOOD GAS ART SITE RIGHT BRACHIAL; ARTERIAL BLOOD GAS DELIVERY VENT; ARTERIAL BLOOD GAS PCO2 76.1 mmHg (35.0-45.0); ARTERIAL BLOOD GAS pH 7.157 (7.350-7.450); ARTERIAL DRAW? YES
[2017-01-09 01:38] LABS: ARTERIAL BLOOD GAS VENT MODE AC
[2017-01-09 03:18] LABS: ARTERIAL BLD GAS O2 SATURATION 98.3 % (90.0-100.0); ARTERIAL BLOOD GAS CARBOXY HB 0.7 %sat (0.0-9.0); ARTERIAL BLOOD GAS MET HB 0.8 %sat (0.0-2.0)
[2017-01-09 03:20] LABS: ARTERIAL BLOOD GAS ALLEN TEST NORMAL; ARTERIAL BLOOD GAS ART SITE LEFT RADIAL; ARTERIAL BLOOD GAS DELIVERY VENT; ARTERIAL BLOOD GAS PCO2 51.2 mmHg (35.0-45.0); ARTERIAL BLOOD GAS VENT MODE AC; ARTERIAL DRAW? YES
[2017-01-09 04:07] LABS: URINE SOURCE CLEAN CATCH
[2017-01-09 04:12] LABS: URINE APPEARANCE CLOUDY; URINE BILIRUBIN NEG (NEG); URINE BLOOD 1+ (NEG); URINE COLOR YELLOW; URINE GLUCOSE 100 MG/DL (NEG); URINE KETONE NEG (NEG); URINE LEUKOCYTE ESTERASE NEG (NEG); URINE NITRATE NEG (NEG); URINE PH 6.5 (5-8); URINE PROTEIN TRACE (NEG); URINE SPECIFIC GRAVITY 1.028 (1.003-1.035)
[2017-01-09 04:14] LABS: URINE BACTERIA AUWI NEG (NEGATIVE); URINE SQUAMOUS EPITHELIAL CELL FEW /[HPF]
[2017-01-09 04:41] LABS: CULTURE INDICATED? NO
[2017-01-09 07:54] LABS: BASOPHIL% 0.1 % (0-2.5); HEMATOCRIT 40.2 % (35.0-45.0); HEMOGLOBIN 13.6 gm/dL (12.0-16.0); LYMPHOCYTE# 0.2 X10e3 (1.0-3.5); LYMPHOCYTE% 1.1 % (17.0-45.0); MEAN CORPUSCULAR HGB CONC 33.7 g/dL (30-36); MEAN PLATELET VOLUME 9.8 FL (6.5-11.5); MONOCYTE# 0.3 X10e3 (0-1.0); MONOCYTE% 1.5 % (3.0-12.0); NEUTROPHIL# 19.2 X10e3 (1.5-7.1); NEUTROPHIL% 97.3 % (40-75); PLATELET COUNT 139 X10e3 (140-420); RED BLOOD COUNT 4.37 X10e (3.90-5.30); RED CELL DISTRIBUTION WIDTH 14.1 % (11.0-15.5); WHITE BLOOD COUNT 19.8 X10e3 (4.0-10.5)
[2017-01-09 07:55] LABS: DIFF IND YES
[2017-01-09 08:03] LABS: ARTERIAL BLD GAS O2 SATURATION 98.3 % (90.0-100.0); ARTERIAL BLOOD GAS CARBOXY HB 0.7 %sat (0.0-9.0); ARTERIAL BLOOD GAS HCO3 22.4 mmol/L; ARTERIAL BLOOD GAS MET HB 1.1 %sat (0.0-2.0); ARTERIAL BLOOD GAS PCO2 41.6 mmHg (35.0-45.0); ARTERIAL BLOOD GAS pH 7.339 (7.350-7.450)
[2017-01-09 08:04] LABS: ARTERIAL BLOOD GAS ALLEN TEST NORMAL; ARTERIAL BLOOD GAS ART SITE RIGHT RADIAL; ARTERIAL BLOOD GAS VENT MODE A/C; ARTERIAL DRAW? YES
[2017-01-09 08:27] LABS: ANISOCYTOSIS SL; PLATELET ESTIMATE NORMAL (NORMAL)
[2017-01-09 08:36] LABS: BLOOD UREA NITROGEN 7 mg/dL (9-23); BUN/CREATININE RATIO 23.33; CALCIUM SERUM 7.9 mg/dL (8.4-10.2); CARBON DIOXIDE 22 mmol/L (22-31); CHLORIDE 105 mmol/L (100-111); CREATININE SERUM 0.3 mg/dL (0.6-1.4); GLOM FILT RATE Estimated ABOVE60 mL/min (>60); GLUCOSE FASTING 188 mg/dL (70-110); POTASSIUM 3.6 mmol/L (3.5-5.1); SODIUM 137 mmol/L (135-145)
[2017-01-09] MEDS ORDERED: DEBROX OTIC DRO15 ML AD (14:34)
[2017-01-09] MEDS ORDERED: ZOLOFT PEG (14:36)
[2017-01-10 02:17] LABS: INFLUENZA A NEG (NEG); INFLUENZA B NEG (NEG)
[2017-01-10 05:12] LABS: ARTERIAL BLD GAS O2 SATURATION 98.4 % (90.0-100.0); ARTERIAL BLOOD GAS CARBOXY HB 0.7 %sat (0.0-9.0); ARTERIAL BLOOD GAS HCO3 24.2 mmol/L; ARTERIAL BLOOD GAS MET HB 0.8 %sat (0.0-2.0); ARTERIAL BLOOD GAS PCO2 46.3 mmHg (35.0-45.0); ARTERIAL BLOOD GAS pH 7.326 (7.350-7.450)
[2017-01-10 05:23] LABS: ARTERIAL BLOOD GAS ALLEN TEST NORMAL; ARTERIAL BLOOD GAS ART SITE RIGHT RADIAL; ARTERIAL BLOOD GAS VENT MODE AC; ARTERIAL DRAW? YES
[2017-01-10 07:21] LABS: BASOPHIL% 0.1 % (0-2.5); BLOOD UREA NITROGEN 8 mg/dL (9-23); BUN/CREATININE RATIO 26.66; CALCIUM SERUM 7.6 mg/dL (8.4-10.2); CARBON DIOXIDE 24 mmol/L (22-31); CHLORIDE 111 mmol/L (100-111); CREATININE SERUM 0.3 mg/dL (0.6-1.4); GLOM FILT RATE Estimated ABOVE60 mL/min (>60); GLUCOSE FASTING 189 mg/dL (70-110); HEMATOCRIT 36.4 % (35.0-45.0); HEMOGLOBIN 12.1 gm/dL (12.0-16.0); LYMPHOCYTE# 0.4 X10e3 (1.0-3.5); LYMPHOCYTE% 1.9 % (17.0-45.0); MEAN CORPUSCULAR HEMOGLOBIN 30.5 PG (28-34); MEAN CORPUSCULAR HGB CONC 33.2 g/dL (30-36); MEAN PLATELET VOLUME 10.5 FL (6.5-11.5); MONOCYTE# 0.3 X10e3 (0-1.0); MONOCYTE% 1.7 % (3.0-12.0); NEUTROPHIL# 18.7 X10e3 (1.5-7.1); NEUTROPHIL% 96.3 % (40-75); PLATELET COUNT 166 X10e3 (140-420); POTASSIUM 3.6 mmol/L (3.5-5.1); RED BLOOD COUNT 3.96 X10e (3.90-5.30); RED CELL DISTRIBUTION WIDTH 14.1 % (11.0-15.5); SODIUM 141 mmol/L (135-145); WHITE BLOOD COUNT 19.4 X10e3 (4.0-10.5)
[2017-01-10 07:23] LABS: DIFF IND NO
[2017-01-11 05:39] LABS: ARTERIAL BLOOD GAS CARBOXY HB 0.3 %sat (0.0-9.0); ARTERIAL BLOOD GAS HCO3 23.3 mmol/L; ARTERIAL BLOOD GAS MET HB 0.4 %sat (0.0-2.0); ARTERIAL BLOOD GAS PCO2 38.8 mmHg (35.0-45.0); ARTERIAL BLOOD GAS pH 7.387 (7.350-7.450)
[2017-01-11 05:47] LABS: ARTERIAL BLOOD GAS ALLEN TEST NORMAL; ARTERIAL BLOOD GAS ART SITE RIGHT RADIAL; ARTERIAL BLOOD GAS VENT MODE AC; ARTERIAL DRAW? YES
[2017-01-12 03:41] LABS: BASOPHIL% 0.1 % (0-2.5); HEMATOCRIT 33.4 % (35.0-45.0); HEMOGLOBIN 11.3 gm/dL (12.0-16.0); LYMPHOCYTE# 0.3 X10e3 (1.0-3.5); MEAN CELL VOLUME 91.6 FL (83-96); MEAN CORPUSCULAR HEMOGLOBIN 31.1 PG (28-34); MONOCYTE# 0.4 X10e3 (0-1.0); MONOCYTE% 5.7 % (3.0-12.0); NEUTROPHIL# 6.1 X10e3 (1.5-7.1); NEUTROPHIL% 89.2 % (40-75); PLATELET COUNT 112 X10e3 (140-420); RED BLOOD COUNT 3.65 X10e (3.90-5.30); RED CELL DISTRIBUTION WIDTH 13.8 % (11.0-15.5)
[2017-01-12 03:48] LABS: WHITE BLOOD COUNT 6.8 X10e3 (4.0-10.5)
[2017-01-12 03:49] LABS: DIFF IND NO
[2017-01-12 03:52] LABS: ARTERIAL BLD GAS O2 SATURATION 95.1 % (90.0-100.0); ARTERIAL BLOOD GAS CARBOXY HB 0.8 %sat (0.0-9.0); ARTERIAL BLOOD GAS HCO3 25.6 mmol/L; ARTERIAL BLOOD GAS PCO2 39.9 mmHg (35.0-45.0); ARTERIAL BLOOD GAS pH 7.416 (7.350-7.450)
[2017-01-12 04:07] LABS: ARTERIAL BLOOD GAS ALLEN TEST NORMAL; ARTERIAL BLOOD GAS ART SITE RIGHT RADIAL; ARTERIAL BLOOD GAS PO2 71.7 mmHg (80.0-100); ARTERIAL DRAW? YES
[2017-01-12 04:08] LABS: ARTERIAL BLOOD GAS DELIVERY VENT; ARTERIAL BLOOD GAS VENT MODE AC
[2017-01-12 04:08] LABS: ALBUMIN SERUM 2.7 g/dL (3.5-5.0); ALKALINE PHOSPHATASE 43 U/L (32-92); ALT (SGPT) 69 U/L (10-40); AST (SGOT) 39 U/L (10-42); BLOOD UREA NITROGEN 11 mg/dL (9-23); CALCIUM SERUM 7.2 mg/dL (8.4-10.2); CARBON DIOXIDE 25 mmol/L (22-31); CHLORIDE 111 mmol/L (100-111); CREATININE SERUM 0.4 mg/dL (0.6-1.4); GLOM FILT RATE Estimated ABOVE60 mL/min (>60); GLUCOSE FASTING 196 mg/dL (70-110); PROTEIN TOTAL SERUM 5.2 g/dL (6.0-8.3); SODIUM 137 mmol/L (135-145)
[2017-01-12 04:15] LABS: POTASSIUM 2.5 mmol/L (3.5-5.1)
[2017-01-12 13:47] LABS: MAGNESIUM 2.2 mg/dL (1.6-3.0); POTASSIUM 3.3 mmol/L (3.5-5.1)
[2017-01-12 14:40] LABS: BODY FLUID APPEARANCE BLOODY; BODY FLUID SOURCE BRONCHIAL LAVAGE
[2017-01-13 04:12] LABS: ARTERIAL BLD GAS O2 SATURATION 92.2 % (90.0-100.0); ARTERIAL BLOOD GAS CARBOXY HB 0.6 %sat (0.0-9.0); ARTERIAL BLOOD GAS HCO3 32.5 mmol/L; ARTERIAL BLOOD GAS MET HB 0.5 %sat (0.0-2.0); ARTERIAL BLOOD GAS PCO2 45.2 mmHg (35.0-45.0); ARTERIAL BLOOD GAS pH 7.466 (7.350-7.450)
[2017-01-13 04:19] LABS: ARTERIAL BLOOD GAS ALLEN TEST NORMAL; ARTERIAL BLOOD GAS ART SITE RIGHT RADIAL; ARTERIAL BLOOD GAS DELIVERY VENT; ARTERIAL BLOOD GAS PO2 58.8 mmHg (80.0-100); ARTERIAL BLOOD GAS VENT MODE AC; ARTERIAL DRAW? YES
[2017-01-13 04:32] LABS: BASOPHIL% 0.1 % (0-2.5); EOSINOPHIL% 0.1 % (0.0-7.0); HEMATOCRIT 35.1 % (35.0-45.0); HEMOGLOBIN 12.1 gm/dL (12.0-16.0); LYMPHOCYTE# 0.4 X10e3 (1.0-3.5); LYMPHOCYTE% 4.9 % (17.0-45.0); MEAN CELL VOLUME 90.9 FL (83-96); MEAN CORPUSCULAR HEMOGLOBIN 31.2 PG (28-34); MEAN CORPUSCULAR HGB CONC 34.3 g/dL (30-36); MEAN PLATELET VOLUME 9.8 FL (6.5-11.5); MONOCYTE# 0.6 X10e3 (0-1.0); MONOCYTE% 7.3 % (3.0-12.0); NEUTROPHIL% 87.6 % (40-75); PLATELET COUNT 118 X10e3 (140-420); RED BLOOD COUNT 3.87 X10e (3.90-5.30); RED CELL DISTRIBUTION WIDTH 13.8 % (11.0-15.5); WHITE BLOOD COUNT 7.9 X10e3 (4.0-10.5)
[2017-01-13 04:33] LABS: DIFF IND NO
[2017-01-13 04:48] LABS: ALBUMIN SERUM 2.9 g/dL (3.5-5.0); ALKALINE PHOSPHATASE 51 U/L (32-92); ALT (SGPT) 57 U/L (10-40); AST (SGOT) 29 U/L (10-42); BILIRUBIN,TOTAL 0.5 mg/dL (0.2-2.0); BLOOD UREA NITROGEN 7 mg/dL (9-23); CALCIUM SERUM 7.6 mg/dL (8.4-10.2); CARBON DIOXIDE 32 mmol/L (22-31); CHLORIDE 101 mmol/L (100-111); CREATININE SERUM 0.5 mg/dL (0.6-1.4); GLOM FILT RATE Estimated ABOVE60 mL/min (>60); GLUCOSE FASTING 210 mg/dL (70-110); POTASSIUM 3.9 mmol/L (3.5-5.1); PROTEIN TOTAL SERUM 5.4 g/dL (6.0-8.3); SODIUM 137 mmol/L (135-145)
[2017-01-14 04:15] LABS: ARTERIAL BLD GAS O2 SATURATION 94.6 % (90.0-100.0); ARTERIAL BLOOD GAS CARBOXY HB 0.6 %sat (0.0-9.0); ARTERIAL BLOOD GAS HCO3 33.3 mmol/L; ARTERIAL BLOOD GAS MET HB 0.8 %sat (0.0-2.0); ARTERIAL BLOOD GAS PCO2 39.9 mmHg (35.0-45.0); ARTERIAL BLOOD GAS pH 7.531 (7.350-7.450)
[2017-01-14 04:20] LABS: ARTERIAL BLOOD GAS PO2 64.7 mmHg (80.0-100)
[2017-01-14 04:21] LABS: ARTERIAL BLOOD GAS ALLEN TEST NORMAL; ARTERIAL BLOOD GAS ART SITE RIGHT RADIAL; ARTERIAL BLOOD GAS DELIVERY VENT; ARTERIAL BLOOD GAS VENT MODE AC; ARTERIAL DRAW? YES
[2017-01-14 05:07] LABS: BASOPHIL% 0.2 % (0-2.5); HEMATOCRIT 40.7 % (35.0-45.0); HEMOGLOBIN 13.8 gm/dL (12.0-16.0); LYMPHOCYTE# 0.3 X10e3 (1.0-3.5); MEAN CORPUSCULAR HEMOGLOBIN 30.6 PG (28-34); MEAN PLATELET VOLUME 10.1 FL (6.5-11.5); MONOCYTE# 0.4 X10e3 (0-1.0); NEUTROPHIL# 4.9 X10e3 (1.5-7.1); NEUTROPHIL% 86.8 % (40-75); PLATELET COUNT 107 X10e3 (140-420); RED BLOOD COUNT 4.53 X10e (3.90-5.30); RED CELL DISTRIBUTION WIDTH 13.5 % (11.0-15.5); WHITE BLOOD COUNT 5.7 X10e3 (4.0-10.5)
[2017-01-14 05:08] LABS: DIFF IND YES
[2017-01-14 05:55] LABS: ALBUMIN SERUM 3.1 g/dL (3.5-5.0); ALKALINE PHOSPHATASE 48 U/L (32-92); ALT (SGPT) 49 U/L (10-40); AST (SGOT) 26 U/L (10-42); BILIRUBIN,TOTAL 0.7 mg/dL (0.2-2.0); BLOOD UREA NITROGEN 6 mg/dL (9-23); CALCIUM SERUM 8.2 mg/dL (8.4-10.2); CARBON DIOXIDE 31 mmol/L (22-31); CHLORIDE 98 mmol/L (100-111); CREATININE SERUM 0.4 mg/dL (0.6-1.4); GLOM FILT RATE Estimated ABOVE60 mL/min (>60); GLUCOSE FASTING 240 mg/dL (70-110); POTASSIUM 3.5 mmol/L (3.5-5.1); PROTEIN TOTAL SERUM 5.8 g/dL (6.0-8.3); SODIUM 136 mmol/L (135-145)
[2017-01-14 06:03] LABS: PLATELET ESTIMATE DECREASED (NORMAL); RBC NORMAL YES
[2017-01-15 04:03] LABS: ARTERIAL BLD GAS O2 SATURATION 97.7 % (90.0-100.0); ARTERIAL BLOOD GAS CARBOXY HB 0.5 %sat (0.0-9.0); ARTERIAL BLOOD GAS HCO3 38.3 mmol/L; ARTERIAL BLOOD GAS MET HB 0.4 %sat (0.0-2.0); ARTERIAL BLOOD GAS PCO2 40.7 mmHg (35.0-45.0); ARTERIAL BLOOD GAS PO2 86.2 mmHg (80.0-100); ARTERIAL BLOOD GAS pH 7.582 (7.350-7.450)
[2017-01-15 04:08] LABS: ARTERIAL BLOOD GAS ALLEN TEST NORMAL; ARTERIAL BLOOD GAS ART SITE RIGHT RADIAL; ARTERIAL BLOOD GAS DELIVERY VENT; ARTERIAL BLOOD GAS VENT MODE AC; ARTERIAL DRAW? YES
[2017-01-15 05:33] LABS: BASOPHIL% 0.1 % (0-2.5); HEMATOCRIT 43.3 % (35.0-45.0); HEMOGLOBIN 14.8 gm/dL (12.0-16.0); LYMPHOCYTE# 0.3 X10e3 (1.0-3.5); LYMPHOCYTE% 2.4 % (17.0-45.0); MEAN CELL VOLUME 90.5 FL (83-96); MEAN CORPUSCULAR HEMOGLOBIN 30.9 PG (28-34); MEAN CORPUSCULAR HGB CONC 34.2 g/dL (30-36); MEAN PLATELET VOLUME 9.9 FL (6.5-11.5); MONOCYTE% 6.8 % (3.0-12.0); NEUTROPHIL# 12.7 X10e3 (1.5-7.1); NEUTROPHIL% 90.7 % (40-75); PLATELET COUNT 130 X10e3 (140-420); RED BLOOD COUNT 4.78 X10e (3.90-5.30); RED CELL DISTRIBUTION WIDTH 13.5 % (11.0-15.5)
[2017-01-15 05:34] LABS: DIFF IND NO; WHITE BLOOD COUNT 14.1 X10e3 (4.0-10.5)
[2017-01-15 05:55] LABS: ALBUMIN SERUM 3.3 g/dL (3.5-5.0); ALKALINE PHOSPHATASE 51 U/L (32-92); ALT (SGPT) 68 U/L (10-40); AST (SGOT) 50 U/L (10-42); BLOOD UREA NITROGEN 11 mg/dL (9-23); BUN/CREATININE RATIO 36.66; CALCIUM SERUM 8.5 mg/dL (8.4-10.2); CARBON DIOXIDE 35 mmol/L (22-31); CHLORIDE 91 mmol/L (100-111); CREATININE SERUM 0.3 mg/dL (0.6-1.4); GLOM FILT RATE Estimated ABOVE60 mL/min (>60); GLUCOSE FASTING 140 mg/dL (70-110); MAGNESIUM 1.9 mg/dL (1.6-3.0); POTASSIUM 3.2 mmol/L (3.5-5.1); PROTEIN TOTAL SERUM 5.9 g/dL (6.0-8.3); SODIUM 136 mmol/L (135-145)
[2017-01-15 08:01] LABS: ARTERIAL BLD GAS O2 SATURATION 98.1 % (90.0-100.0); ARTERIAL BLOOD GAS CARBOXY HB 0.3 %sat (0.0-9.0); ARTERIAL BLOOD GAS HCO3 39.1 mmol/L; ARTERIAL BLOOD GAS MET HB 0.6 %sat (0.0-2.0); ARTERIAL BLOOD GAS pH 7.466 (7.350-7.450)
[2017-01-15 08:03] LABS: ARTERIAL BLOOD GAS ALLEN TEST NORMAL; ARTERIAL BLOOD GAS ART SITE RIGHT RADIAL; ARTERIAL BLOOD GAS PCO2 54.4 mmHg (35.0-45.0); ARTERIAL BLOOD GAS VENT MODE AC; ARTERIAL DRAW? YES
[2017-01-15 16:23] LABS: ARTERIAL BLD GAS O2 SATURATION 97.9 % (90.0-100.0); ARTERIAL BLOOD GAS CARBOXY HB 0.3 %sat (0.0-9.0); ARTERIAL BLOOD GAS HCO3 41.1 mmol/L; ARTERIAL BLOOD GAS MET HB 0.7 %sat (0.0-2.0); ARTERIAL BLOOD GAS pH 7.341 (7.350-7.450)
[2017-01-15 16:29] LABS: ARTERIAL BLOOD GAS ALLEN TEST NORMAL; ARTERIAL BLOOD GAS ART SITE RIGHT RADIAL; ARTERIAL BLOOD GAS DELIVERY ATT; ARTERIAL BLOOD GAS PCO2 76.1 mmHg (35.0-45.0); ARTERIAL DRAW? YES
[2017-01-16 04:07] LABS: ARTERIAL BLD GAS O2 SATURATION 98.7 % (90.0-100.0); ARTERIAL BLOOD GAS CARBOXY HB 0.3 %sat (0.0-9.0); ARTERIAL BLOOD GAS HCO3 42.3 mmol/L; ARTERIAL BLOOD GAS MET HB 0.6 %sat (0.0-2.0)
[2017-01-16 04:09] LABS: ARTERIAL BLOOD GAS ALLEN TEST NORMAL; ARTERIAL BLOOD GAS ART SITE RIGHT RADIAL; ARTERIAL BLOOD GAS DELIVERY VENT; ARTERIAL BLOOD GAS PCO2 59.5 mmHg (35.0-45.0); ARTERIAL BLOOD GAS VENT MODE AC; ARTERIAL DRAW? YES
[2017-01-16 05:29] LABS: BASOPHIL# 0.1 X10e3 (0-0.3); BASOPHIL% 0.3 % (0-2.5); EOSINOPHIL% 0.1 % (0.0-7.0); HEMATOCRIT 41.7 % (35.0-45.0); HEMOGLOBIN 13.8 gm/dL (12.0-16.0); LYMPHOCYTE% 5.4 % (17.0-45.0); MEAN CELL VOLUME 91.1 FL (83-96); MEAN CORPUSCULAR HEMOGLOBIN 30.2 PG (28-34); MEAN CORPUSCULAR HGB CONC 33.2 g/dL (30-36); MEAN PLATELET VOLUME 9.1 FL (6.5-11.5); MONOCYTE% 11.2 % (3.0-12.0); NEUTROPHIL# 15.1 X10e3 (1.5-7.1); PLATELET COUNT 175 X10e3 (140-420); RED BLOOD COUNT 4.58 X10e (3.90-5.30); RED CELL DISTRIBUTION WIDTH 13.7 % (11.0-15.5); WHITE BLOOD COUNT 18.2 X10e3 (4.0-10.5)
[2017-01-16 05:30] LABS: DIFF IND YES
[2017-01-16 06:33] LABS: ALBUMIN SERUM 3.3 g/dL (3.5-5.0); ALKALINE PHOSPHATASE 51 U/L (32-92); ALT (SGPT) 120 U/L (10-40); AST (SGOT) 93 U/L (10-42); BILIRUBIN,TOTAL 0.6 mg/dL (0.2-2.0); BLOOD UREA NITROGEN 11 mg/dL (9-23); CALCIUM SERUM 8.6 mg/dL (8.4-10.2); CARBON DIOXIDE 36 mmol/L (22-31); CHLORIDE 90 mmol/L (100-111); CREATININE SERUM 0.4 mg/dL (0.6-1.4); GLOM FILT RATE Estimated ABOVE60 mL/min (>60); GLUCOSE FASTING 59 mg/dL (70-110); POTASSIUM 3.2 mmol/L (3.5-5.1); SODIUM 136 mmol/L (135-145)
[2017-01-16 06:40] LABS: PLATELET ESTIMATE NORMAL (NORMAL)
[2017-01-16 06:41] LABS: VACUOLIZATION SL
[2017-01-16 16:40] LABS: ARTERIAL BLD GAS O2 SATURATION 98.4 % (90.0-100.0); ARTERIAL BLOOD GAS ALLEN TEST NORMAL; ARTERIAL BLOOD GAS ART SITE RIGHT BRACHIAL; ARTERIAL BLOOD GAS CARBOXY HB 0.4 %sat (0.0-9.0); ARTERIAL BLOOD GAS DELIVERY NASAL CANNULA; ARTERIAL BLOOD GAS HCO3 40.8 mmol/L; ARTERIAL BLOOD GAS MET HB 0.6 %sat (0.0-2.0); ARTERIAL BLOOD GAS PCO2 67.2 mmHg (35.0-45.0); ARTERIAL BLOOD GAS pH 7.392 (7.350-7.450); ARTERIAL DRAW? YES
[2017-01-17 02:24] LABS: BASOPHIL% 0.1 % (0-2.5); HEMATOCRIT 46.9 % (35.0-45.0); HEMOGLOBIN 15.4 gm/dL (12.0-16.0); LYMPHOCYTE# 0.4 X10e3 (1.0-3.5); LYMPHOCYTE% 1.5 % (17.0-45.0); MEAN CORPUSCULAR HEMOGLOBIN 30.5 PG (28-34); MEAN CORPUSCULAR HGB CONC 32.8 g/dL (30-36); MEAN PLATELET VOLUME 8.9 FL (6.5-11.5); MONOCYTE% 3.8 % (3.0-12.0); NEUTROPHIL# 24.3 X10e3 (1.5-7.1); NEUTROPHIL% 94.6 % (40-75); RED BLOOD COUNT 5.04 X10e (3.90-5.30); RED CELL DISTRIBUTION WIDTH 14.3 % (11.0-15.5); WHITE BLOOD COUNT 25.7 X10e3 (4.0-10.5)
[2017-01-17 02:25] LABS: PLATELET COUNT 282 X10e3 (140-420)
[2017-01-17 02:26] LABS: DIFF IND NO
[2017-01-17 02:44] LABS: ALBUMIN SERUM 4.3 g/dL (3.5-5.0); ALKALINE PHOSPHATASE 69 U/L (32-92); ALT (SGPT) 170 U/L (10-40); AST (SGOT) 70 U/L (10-42); BILIRUBIN,TOTAL 0.9 mg/dL (0.2-2.0); BLOOD UREA NITROGEN 19 mg/dL (9-23); CALCIUM SERUM 8.9 mg/dL (8.4-10.2); CARBON DIOXIDE 45 mmol/L (22-31); CHLORIDE 90 mmol/L (100-111); CREATININE SERUM 0.4 mg/dL (0.6-1.4); GLOM FILT RATE Estimated ABOVE60 mL/min (>60); GLUCOSE FASTING 286 mg/dL (70-110); POTASSIUM 4.7 mmol/L (3.5-5.1); PROTEIN TOTAL SERUM 7.6 g/dL (6.0-8.3); SODIUM 140 mmol/L (135-145)
[2017-01-17 02:46] LABS: ARTERIAL BLD GAS O2 SATURATION 94.8 % (90.0-100.0); ARTERIAL BLOOD GAS CARBOXY HB 0.6 %sat (0.0-9.0); ARTERIAL BLOOD GAS HCO3 43.1 mmol/L; ARTERIAL BLOOD GAS MET HB 0.7 %sat (0.0-2.0); ARTERIAL BLOOD GAS PO2 85.5 mmHg (80.0-100); ARTERIAL BLOOD GAS pH 7.312 (7.350-7.450)
[2017-01-17 02:54] LABS: THYROID STIMULATING HORMONE 0.27 uIU/ml (0.34-5.60)
[2017-01-17 03:01] LABS: FREE THYROXIN (T4) 0.97 ng/dL (0.58-1.64)
[2017-01-17 06:21] LABS: ARTERIAL BLOOD GAS ALLEN TEST NORMAL; ARTERIAL BLOOD GAS ART SITE LEFT RADIAL; ARTERIAL BLOOD GAS DELIVERY NASAL CANNULA; ARTERIAL BLOOD GAS PCO2 85.3 mmHg (35.0-45.0); ARTERIAL DRAW? YES
[2017-01-17 06:48] LABS: ARTERIAL BLD GAS O2 SATURATION 93.7 % (90.0-100.0); ARTERIAL BLOOD GAS CARBOXY HB 0.7 %sat (0.0-9.0); ARTERIAL BLOOD GAS MET HB 0.9 %sat (0.0-2.0); ARTERIAL BLOOD GAS PO2 80.7 mmHg (80.0-100); ARTERIAL BLOOD GAS pH 7.247 (7.350-7.450)
[2017-01-17 06:50] LABS: ARTERIAL BLOOD GAS ALLEN TEST NORMAL; ARTERIAL BLOOD GAS ART SITE RIGHT RADIAL; ARTERIAL DRAW? YES
[2017-01-17 07:26] LABS: URINE APPEARANCE CLOUDY; URINE BILIRUBIN NEG (NEG); URINE BLOOD 3+ (NEG); URINE COLOR YELLOW; URINE GLUCOSE 500 MG/DL (NEG); URINE KETONE NEG (NEG); URINE LEUKOCYTE ESTERASE TRACE (NEG); URINE NITRATE NEG (NEG); URINE PROTEIN 2+ (NEG); URINE SPECIFIC GRAVITY 1.037 (1.003-1.035); URINE UROBILINOGEN 0.2 MG/DL (NEG)
[2017-01-17 07:28] LABS: CULTURE INDICATED? YES; URBCS1 AUWI 100-200 /[HPF] (0-2); URINE BACTERIA AUWI NEG (NEGATIVE); URINE SQUAMOUS EPITHELIAL CELL FEW /[HPF]; UWBCS1 AUWI 25-50 (0-5)
[2017-01-17 07:50] LABS: URINE GRANULAR CAST 0-2 /[HPF]
[2017-01-17 08:44] LABS: ARTERIAL BLD GAS O2 SATURATION 98.3 % (90.0-100.0); ARTERIAL BLOOD GAS CARBOXY HB 0.6 %sat (0.0-9.0); ARTERIAL BLOOD GAS HCO3 44.9 mmol/L; ARTERIAL BLOOD GAS MET HB 1.1 %sat (0.0-2.0); ARTERIAL BLOOD GAS pH 7.379 (7.350-7.450)
[2017-01-17 08:45] LABS: ARTERIAL BLOOD GAS ART SITE RIGHT RADIAL; ARTERIAL BLOOD GAS DELIVERY BP; ARTERIAL BLOOD GAS PCO2 76.2 mmHg (35.0-45.0); ARTERIAL DRAW? YES
[2017-01-17 13:28] LABS: ARTERIAL BLOOD GAS CARBOXY HB 0.2 %sat (0.0-9.0); ARTERIAL BLOOD GAS HCO3 48.3 mmol/L; ARTERIAL BLOOD GAS MET HB 0.6 %sat (0.0-2.0); ARTERIAL BLOOD GAS pH 7.471 (7.350-7.450)
[2017-01-17 13:29] LABS: ARTERIAL BLOOD GAS ART SITE RIGHT RADIAL; ARTERIAL BLOOD GAS DELIVERY BP; ARTERIAL BLOOD GAS PCO2 66.2 mmHg (35.0-45.0); ARTERIAL DRAW? YES
[2017-01-18 03:50] LABS: BASOPHIL% 0.1 % (0-2.5); HEMATOCRIT 44.2 % (35.0-45.0); HEMOGLOBIN 14.3 gm/dL (12.0-16.0); LYMPHOCYTE# 0.2 X10e3 (1.0-3.5); LYMPHOCYTE% 0.9 % (17.0-45.0); MEAN CELL VOLUME 93.9 FL (83-96); MEAN CORPUSCULAR HEMOGLOBIN 30.4 PG (28-34); MEAN CORPUSCULAR HGB CONC 32.4 g/dL (30-36); MONOCYTE# 1.1 X10e3 (0-1.0); MONOCYTE% 5.4 % (3.0-12.0); NEUTROPHIL# 19.9 X10e3 (1.5-7.1); NEUTROPHIL% 93.6 % (40-75); PLATELET COUNT 183 X10e3 (140-420); RED BLOOD COUNT 4.71 X10e (3.90-5.30); RED CELL DISTRIBUTION WIDTH 13.7 % (11.0-15.5); WHITE BLOOD COUNT 21.2 X10e3 (4.0-10.5)
[2017-01-18 03:51] LABS: DIFF IND NO
[2017-01-18 04:15] LABS: ALKALINE PHOSPHATASE 58 U/L (32-92); ALT (SGPT) 109 U/L (10-40); AST (SGOT) 29 U/L (10-42); BLOOD UREA NITROGEN 26 mg/dL (9-23); CALCIUM SERUM 9.1 mg/dL (8.4-10.2); CARBON DIOXIDE 47 mmol/L (22-31); CHLORIDE 88 mmol/L (100-111); CREATININE SERUM 0.4 mg/dL (0.6-1.4); GLOM FILT RATE Estimated ABOVE60 mL/min (>60); GLUCOSE FASTING 194 mg/dL (70-110); MAGNESIUM 2.6 mg/dL (1.6-3.0); POTASSIUM 4.1 mmol/L (3.5-5.1); PROTEIN TOTAL SERUM 7.2 g/dL (6.0-8.3); SODIUM 142 mmol/L (135-145)
[2017-01-18 05:51] LABS: ARTERIAL BLOOD GAS PCO2 75.8 mmHg (35.0-45.0); ARTERIAL BLOOD GAS pH 7.445 (7.350-7.450)
[2017-01-18 05:52] LABS: ARTERIAL BLOOD GAS CARBOXY HB 0.3 %sat (0.0-9.0); ARTERIAL BLOOD GAS MET HB 0.8 %sat (0.0-2.0); ARTERIAL DRAW? YES
[2017-01-18 05:53] LABS: ARTERIAL BLOOD GAS ALLEN TEST NORMAL; ARTERIAL BLOOD GAS ART SITE RIGHT BRACHIAL; ARTERIAL BLOOD GAS DELIVERY NASAL CANNULA
[2017-01-19 03:31] LABS: HEMATOCRIT 39.8 % (35.0-45.0); HEMOGLOBIN 12.9 gm/dL (12.0-16.0); LYMPHOCYTE# 0.4 X10e3 (1.0-3.5); LYMPHOCYTE% 3.1 % (17.0-45.0); MEAN CELL VOLUME 93.9 FL (83-96); MEAN CORPUSCULAR HEMOGLOBIN 30.4 PG (28-34); MEAN CORPUSCULAR HGB CONC 32.4 g/dL (30-36); MEAN PLATELET VOLUME 8.7 FL (6.5-11.5); MONOCYTE# 1.2 X10e3 (0-1.0); MONOCYTE% 9.9 % (3.0-12.0); NEUTROPHIL# 10.5 X10e3 (1.5-7.1); PLATELET COUNT 182 X10e3 (140-420); RED BLOOD COUNT 4.24 X10e (3.90-5.30); RED CELL DISTRIBUTION WIDTH 14.4 % (11.0-15.5)
[2017-01-19 03:34] LABS: DIFF IND NO
[2017-01-19 04:02] LABS: ALBUMIN SERUM 3.4 g/dL (3.5-5.0); ALKALINE PHOSPHATASE 46 U/L (32-92); ALT (SGPT) 68 U/L (10-40); AST (SGOT) 20 U/L (10-42); BILIRUBIN,TOTAL 0.7 mg/dL (0.2-2.0); BLOOD UREA NITROGEN 31 mg/dL (9-23); CALCIUM SERUM 8.3 mg/dL (8.4-10.2); CARBON DIOXIDE 43 mmol/L (22-31); CHLORIDE 98 mmol/L (100-111); CREATININE SERUM 0.4 mg/dL (0.6-1.4); GLOM FILT RATE Estimated ABOVE60 mL/min (>60); GLUCOSE FASTING 80 mg/dL (70-110); MAGNESIUM 2.5 mg/dL (1.6-3.0); POTASSIUM 3.3 mmol/L (3.5-5.1); PROTEIN TOTAL SERUM 6.2 g/dL (6.0-8.3); SODIUM 140 mmol/L (135-145)
[2017-01-19 04:47] LABS: ARTERIAL BLOOD GAS CARBOXY HB 0.2 %sat (0.0-9.0); ARTERIAL BLOOD GAS HCO3 48.3 mmol/L; ARTERIAL BLOOD GAS MET HB 0.6 %sat (0.0-2.0); ARTERIAL BLOOD GAS pH 7.389 (7.350-7.450)
[2017-01-19 04:50] LABS: ARTERIAL BLOOD GAS ART SITE LEFT BRACHIAL; ARTERIAL BLOOD GAS DELIVERY NASAL CANNULA; ARTERIAL BLOOD GAS LITER FLOW 4.5; ARTERIAL DRAW? YES
[2017-01-20 04:41] LABS: BASOPHIL% 0.1 % (0-2.5); HEMATOCRIT 40.6 % (35.0-45.0); HEMOGLOBIN 13.1 gm/dL (12.0-16.0); LYMPHOCYTE% 7.2 % (17.0-45.0); MEAN CORPUSCULAR HEMOGLOBIN 30.3 PG (28-34); MEAN CORPUSCULAR HGB CONC 32.3 g/dL (30-36); MEAN PLATELET VOLUME 8.7 FL (6.5-11.5); MONOCYTE# 1.8 X10e3 (0-1.0); MONOCYTE% 12.3 % (3.0-12.0); NEUTROPHIL# 11.7 X10e3 (1.5-7.1); NEUTROPHIL% 80.4 % (40-75); PLATELET COUNT 168 X10e3 (140-420); RED BLOOD COUNT 4.32 X10e (3.90-5.30); RED CELL DISTRIBUTION WIDTH 14.3 % (11.0-15.5); WHITE BLOOD COUNT 14.5 X10e3 (4.0-10.5)
[2017-01-20 04:44] LABS: DIFF IND NO
[2017-01-20 05:03] LABS: ARTERIAL BLD GAS O2 SATURATION 96.5 % (90.0-100.0); ARTERIAL BLOOD GAS CARBOXY HB 0.4 %sat (0.0-9.0); ARTERIAL BLOOD GAS HCO3 48.5 mmol/L; ARTERIAL BLOOD GAS MET HB 0.8 %sat (0.0-2.0); ARTERIAL BLOOD GAS pH 7.333 (7.350-7.450)
[2017-01-20 05:22] LABS: ARTERIAL BLOOD GAS ALLEN TEST NORMAL; ARTERIAL BLOOD GAS ART SITE LEFT RADIAL; ARTERIAL BLOOD GAS PCO2 91.3 mmHg (35.0-45.0); ARTERIAL DRAW? YES
[2017-01-20 05:23] LABS: ARTERIAL BLOOD GAS DELIVERY BIPAP 14/6
[2017-01-20 09:37] LABS: ALBUMIN SERUM 3.3 g/dL (3.5-5.0); ALKALINE PHOSPHATASE 45 U/L (32-92); ALT (SGPT) 58 U/L (10-40); AST (SGOT) 26 U/L (10-42); BILIRUBIN,TOTAL 0.9 mg/dL (0.2-2.0); BLOOD UREA NITROGEN 29 mg/dL (9-23); CALCIUM SERUM 8.5 mg/dL (8.4-10.2); CARBON DIOXIDE 42 mmol/L (22-31); CHLORIDE 99 mmol/L (100-111); CREATININE SERUM 0.4 mg/dL (0.6-1.4); GLOM FILT RATE Estimated ABOVE60 mL/min (>60); GLUCOSE FASTING 131 mg/dL (70-110); POTASSIUM 3.6 mmol/L (3.5-5.1); PROTEIN TOTAL SERUM 5.9 g/dL (6.0-8.3); SODIUM 148 mmol/L (135-145)
[2017-01-21 04:04] LABS: ARTERIAL BLD GAS O2 SATURATION 98.2 % (90.0-100.0); ARTERIAL BLOOD GAS CARBOXY HB 0.4 %sat (0.0-9.0); ARTERIAL BLOOD GAS HCO3 52.9 mmol/L; ARTERIAL BLOOD GAS pH 7.407 (7.350-7.450)
[2017-01-21 04:15] LABS: ARTERIAL BLOOD GAS ALLEN TEST NORMAL; ARTERIAL BLOOD GAS ART SITE RIGHT RADIAL; ARTERIAL BLOOD GAS DELIVERY BIPAP 14/6; ARTERIAL DRAW? YES
[2017-01-21 07:16] LABS: ARTERIAL BLD GAS O2 SATURATION 98.2 % (90.0-100.0); ARTERIAL BLOOD GAS CARBOXY HB 0.5 %sat (0.0-9.0); ARTERIAL BLOOD GAS HCO3 51.7 mmol/L; ARTERIAL BLOOD GAS MET HB 1.3 %sat (0.0-2.0); ARTERIAL BLOOD GAS pH 7.406 (7.350-7.450)
[2017-01-21 07:20] LABS: ARTERIAL BLOOD GAS ART SITE RIGHT BRACHIAL; ARTERIAL BLOOD GAS PCO2 82.5 mmHg (35.0-45.0); ARTERIAL DRAW? YES
[2017-01-21 07:21] LABS: ARTERIAL BLOOD GAS DELIVERY BIPAP
[2017-01-21 07:51] LABS: BASOPHIL% 0.1 % (0-2.5); HEMOGLOBIN 13.8 gm/dL (12.0-16.0); LYMPHOCYTE# 0.5 X10e3 (1.0-3.5); LYMPHOCYTE% 4.9 % (17.0-45.0); MEAN CORPUSCULAR HEMOGLOBIN 30.5 PG (28-34); MEAN CORPUSCULAR HGB CONC 32.8 g/dL (30-36); MEAN PLATELET VOLUME 8.4 FL (6.5-11.5); MONOCYTE# 1.2 X10e3 (0-1.0); MONOCYTE% 12.2 % (3.0-12.0); NEUTROPHIL# 8.1 X10e3 (1.5-7.1); NEUTROPHIL% 82.8 % (40-75); PLATELET COUNT 168 X10e3 (140-420); RED BLOOD COUNT 4.51 X10e (3.90-5.30); RED CELL DISTRIBUTION WIDTH 13.9 % (11.0-15.5); WHITE BLOOD COUNT 9.8 X10e3 (4.0-10.5)
[2017-01-21 07:57] LABS: DIFF IND NO
[2017-01-21 08:17] LABS: ALBUMIN SERUM 3.6 g/dL (3.5-5.0); ALKALINE PHOSPHATASE 56 U/L (32-92); ALT (SGPT) 86 U/L (10-40); AST (SGOT) 46 U/L (10-42); BLOOD UREA NITROGEN 26 mg/dL (9-23); BUN/CREATININE RATIO 86.66; CALCIUM SERUM 9.1 mg/dL (8.4-10.2); CARBON DIOXIDE 49 mmol/L (22-31); CHLORIDE 96 mmol/L (100-111); CREATININE SERUM 0.3 mg/dL (0.6-1.4); GLOM FILT RATE Estimated ABOVE60 mL/min (>60); GLUCOSE FASTING 194 mg/dL (70-110); POTASSIUM 3.1 mmol/L (3.5-5.1); PROTEIN TOTAL SERUM 6.8 g/dL (6.0-8.3); SODIUM 151 mmol/L (135-145)
[2017-01-22 08:29] LABS: HEMOGLOBIN 13.4 gm/dL (12.0-16.0); MEAN CELL VOLUME 94.7 FL (83-96); MEAN CORPUSCULAR HEMOGLOBIN 30.2 PG (28-34); MEAN CORPUSCULAR HGB CONC 31.9 g/dL (30-36); MEAN PLATELET VOLUME 8.8 FL (6.5-11.5); RED BLOOD COUNT 4.44 X10e (3.90-5.30); RED CELL DISTRIBUTION WIDTH 14.2 % (11.0-15.5)
[2017-01-22 09:24] LABS: BLOOD UREA NITROGEN 27 mg/dL (9-23); CALCIUM SERUM 9.3 mg/dL (8.4-10.2); CARBON DIOXIDE 42 mmol/L (22-31); CHLORIDE 99 mmol/L (100-111); CREATININE SERUM 0.3 mg/dL (0.6-1.4); GLOM FILT RATE Estimated ABOVE60 mL/min (>60); GLUCOSE FASTING 143 mg/dL (70-110); MAGNESIUM 2.3 mg/dL (1.6-3.0); POTASSIUM 4.1 mmol/L (3.5-5.1); SODIUM 153 mmol/L (135-145)
[2017-01-22 16:25] LABS: ARTERIAL BLOOD GAS CARBOXY HB 0.5 %sat (0.0-9.0); ARTERIAL BLOOD GAS MET HB 0.9 %sat (0.0-2.0); ARTERIAL BLOOD GAS pH 7.478 (7.350-7.450)
[2017-01-22 16:26] LABS: ARTERIAL BLOOD GAS PCO2 62.1 mmHg (35.0-45.0)
[2017-01-22 16:27] LABS: ARTERIAL BLOOD GAS ART SITE RIGHT RADIAL; ARTERIAL BLOOD GAS DELIVERY BIPAP; ARTERIAL DRAW? YES
[2017-01-23 09:23] LABS: ARTERIAL BLOOD GAS CARBOXY HB 0.5 %sat (0.0-9.0); ARTERIAL BLOOD GAS HCO3 42.4 mmol/L; ARTERIAL BLOOD GAS MET HB 1.5 %sat (0.0-2.0); ARTERIAL BLOOD GAS pH 7.432 (7.350-7.450)
[2017-01-23 09:24] LABS: ARTERIAL BLOOD GAS ART SITE RIGHT RADIAL; ARTERIAL BLOOD GAS DELIVERY NASAL CANNULA; ARTERIAL BLOOD GAS PCO2 63.6 mmHg (35.0-45.0); ARTERIAL DRAW? YES
[2017-01-24 04:02] LABS: ARTERIAL BLD GAS O2 SATURATION 98.8 % (90.0-100.0); ARTERIAL BLOOD GAS CARBOXY HB 0.3 %sat (0.0-9.0); ARTERIAL BLOOD GAS HCO3 44.3 mmol/L; ARTERIAL BLOOD GAS MET HB 0.8 %sat (0.0-2.0); ARTERIAL BLOOD GAS pH 7.508 (7.350-7.450)
[2017-01-24 04:04] LABS: ARTERIAL BLOOD GAS ALLEN TEST NORMAL; ARTERIAL BLOOD GAS ART SITE RIGHT RADIAL; ARTERIAL BLOOD GAS DELIVERY BIPAP16/6; ARTERIAL BLOOD GAS PCO2 55.9 mmHg (35.0-45.0); ARTERIAL DRAW? YES
[2017-01-24 05:54] LABS: BASOPHIL% 0.3 % (0-2.5); EOSINOPHIL% 0.2 % (0.0-7.0); LYMPHOCYTE# 1.3 X10e3 (1.0-3.5); LYMPHOCYTE% 10.6 % (17.0-45.0); MEAN CORPUSCULAR HEMOGLOBIN 30.4 PG (28-34); MEAN CORPUSCULAR HGB CONC 33.4 g/dL (30-36); MEAN PLATELET VOLUME 9.4 FL (6.5-11.5); MONOCYTE# 1.1 X10e3 (0-1.0); MONOCYTE% 8.5 % (3.0-12.0); NEUTROPHIL# 10.1 X10e3 (1.5-7.1); NEUTROPHIL% 80.4 % (40-75); PLATELET COUNT 150 X10e3 (140-420); RED BLOOD COUNT 3.96 X10e (3.90-5.30); RED CELL DISTRIBUTION WIDTH 13.1 % (11.0-15.5); WHITE BLOOD COUNT 12.6 X10e3 (4.0-10.5)
[2017-01-24 06:02] LABS: DIFF IND NO; MEAN CELL VOLUME 90.9 FL (83-96)
[2017-01-24 06:25] LABS: ALBUMIN SERUM 3.2 g/dL (3.5-5.0); ALKALINE PHOSPHATASE 57 U/L (32-92); ALT (SGPT) 56 U/L (10-40); AST (SGOT) 24 U/L (10-42); BILIRUBIN,TOTAL 0.9 mg/dL (0.2-2.0); BLOOD UREA NITROGEN 11 mg/dL (9-23); CALCIUM SERUM 8.7 mg/dL (8.4-10.2); CARBON DIOXIDE 41 mmol/L (22-31); CHLORIDE 91 mmol/L (100-111); GLUCOSE FASTING 173 mg/dL (70-110); POTASSIUM 3.1 mmol/L (3.5-5.1); PROTEIN TOTAL SERUM 5.8 g/dL (6.0-8.3); SODIUM 138 mmol/L (135-145)
[2017-01-24 06:31] LABS: BUN/CREATININE RATIO 36.66; CREATININE SERUM <0.3 mg/dL (0.6-1.4); GLOM FILT RATE Estimated ABOVE60 mL/min (>60)
[2017-01-25 17:37] LABS: ARTERIAL BLD GAS O2 SATURATION 98.1 % (90.0-100.0); ARTERIAL BLOOD GAS ALLEN TEST NORMAL; ARTERIAL BLOOD GAS ART SITE RIGHT RADIAL; ARTERIAL BLOOD GAS CARBOXY HB 0.5 %sat (0.0-9.0); ARTERIAL BLOOD GAS DELIVERY NASAL CANNULA; ARTERIAL BLOOD GAS HCO3 38.9 mmol/L; ARTERIAL BLOOD GAS MET HB 0.9 %sat (0.0-2.0); ARTERIAL BLOOD GAS PCO2 54.3 mmHg (35.0-45.0); ARTERIAL BLOOD GAS pH 7.463 (7.350-7.450); ARTERIAL DRAW? YES
[2017-01-26 11:18] LABS: MAGNESIUM 1.9 mg/dL (1.6-3.0); POTASSIUM 3.7 mmol/L (3.5-5.1)
[2017-01-27 06:57] LABS: POTASSIUM 3.8 mmol/L (3.5-5.1)
[2017-01-27] MEDS ORDERED: COMBIVENT U/D3 ML (10:40)
[2017-01-27] MEDS ORDERED: COMBIVENT U/D3 M4 INH (10:41)
[2017-01-27] MEDS ORDERED: LASIX PEG (10:42)
[2017-01-27] MEDS ORDERED: COMBIVENT MININEB INH (10:42)
[2017-01-27] MEDS ORDERED: HUMALOG100 U/M2 SUBQ (10:43)
[2017-01-27] MEDS ORDERED: [UNRECOGNIZED DRUG - OTHER] (10:44)
[2017-01-27] MEDS ORDERED: TYLENOL325 MG/10. PEG (10:46)
[2017-01-27] MEDS ORDERED: FREE WATER PEG (10:48)
[2017-01-27] MEDS ORDERED: SLIDING SCALE (10:54)
[2017-02-19] MEDS ORDERED: OMEPRAZOLE40 M1 PEG (22:23)
[2017-02-19] MEDS ORDERED: SINGULAIR PEG (22:23)
[2017-02-19] MEDS ORDERED: IBUPROFEN800 MG PO (22:24)
[2017-02-19] MEDS ORDERED: CONGESTI EAC PEG (22:24)
[2017-02-19] MEDS ORDERED: SERTRALINE20 MG/1 ML PO (22:25)
[2017-02-19] MEDS ORDERED: ACETAMINOPHEN PEG (22:26)
[2017-02-19] MEDS ORDERED: FLORANEX GRANU1 EACH PEG (22:27)
[2017-02-19] MEDS ORDERED: MIRALAX17 GM PEG (22:27)
[2017-02-19] MEDS ORDERED: ZOFRAN ODT4 M1 SL (22:29)
[2017-02-19] MEDS ORDERED: [UNRECOGNIZED DRUG - OTHER] AU (22:29)
== END 2017-01-27 17:00 | disposition left against medical advice (07) | DRG 853 ==
LOC: CED 21:48 → CEDOF 01-09 02:00 → CICCU2 01-09 09:12 → C3A PCU 01-20 18:46 → CICCU2 01-22 17:00 → C5C 01-24 17:45
PROVIDERS: Emergency Medicine; Family Medicine; Internal Medicine; Internal Medicine Pulmonary Disease; Internal Medicine Sleep Medicine; Nurse Practitioner; Nurse Practitioner Family
PROC: 0BH17EZ Insertion of Endotracheal Airway into Trachea, Via Natural or Artificial Opening (ICD-10-PCS; 2017-01-09)
PROC: 5A1955Z Respiratory Ventilation, Greater than 96 Consecutive Hours (ICD-10-PCS; 2017-01-09)
PROC: 0B968ZX Drainage of Right Lower Lobe Bronchus, Via Natural or Artificial Opening Endoscopic, Diagnostic (ICD-10-PCS; 2017-01-12)
PROC: 0B9B8ZX Drainage of Left Lower Lobe Bronchus, Via Natural or Artificial Opening Endoscopic, Diagnostic (ICD-10-PCS; 2017-01-12)
PROC: 0B9M8ZZ Drainage of Bilateral Lungs, Via Natural or Artificial Opening Endoscopic (ICD-10-PCS; 2017-01-12 10:33)
PROC: 0DHA8UZ Insertion of Feeding Device into Jejunum, Via Natural or Artificial Opening Endoscopic (ICD-10-PCS; principal; 2017-01-21)
PROC: 0DHA8UZ Insertion of Feeding Device into Jejunum, Via Natural or Artificial Opening Endoscopic (ICD-10-PCS; 2017-01-22)
DX: A41.9 Sepsis, unspecified organism (principal); J69.0 Pneumonitis due to inhalation of food and vomit; R65.21 Severe sepsis with septic shock; E43 Unspecified severe protein-calorie malnutrition; J96.01 Acute respiratory failure with hypoxia; J96.02 Acute respiratory failure with hypercapnia; R53.2 Functional quadriplegia; Z93.0 Tracheostomy status; E87.0 Hyperosmolality and hypernatremia; E86.0 Dehydration; J45.901 Unspecified asthma with (acute) exacerbation; K94.23 Gastrostomy malfunction; G80.9 Cerebral palsy, unspecified; K21.9 Gastro-esophageal reflux disease without esophagitis; M41.9 Scoliosis, unspecified; Z88.5 Allergy status to narcotic agent; I34.0 Nonrheumatic mitral (valve) insufficiency; I34.1 Nonrheumatic mitral (valve) prolapse; E87.6 Hypokalemia; Z82.49 Family history of ischemic heart disease and other diseases of the circulatory system; R73.9 Hyperglycemia, unspecified
CPT/HCPCS: 31500; 36415; 36600; 71010; 71250; 74000; 76937; 77001; 80048; 80053; 80076; 81003; 82308; 82553; 82803; 82947; 83036; 83605; 83735; 83880; 84132; 84439; 84443; 84484; 85025; 85027; 85610; 85730; 87040; 87070; 87086; 87102; 87106; 87116; 87205; 87206; 87252; 87254; 87278; 87493; 87804; 88108; 88305; 88312; 89051; 93005; 93306; 94002; 94003; 94640; 94660; 94668; 94760; 94761; 95816; 96365; 99291; C1751; C9113; J0171; J0330; J0456; J1644; J1815; J1940; J1956; J2060; J2250; J2270; J2405; J2543; J2765; J2920; J2930; J2997; J3260; J3475; J3490

== ENCOUNTER 2017-01-30 12:17 | Observation (INO) | payer OTHER ==
--- NOTE | ~2017-01-30 | EKG ---
PATIENT: ROEL HODGES UNIT #: [id number] Ventricular Rate: 110 BPM Atrial Rate: 110 BPM P-R Interval: 90 ms QRS Duration: 62 ms Q-T Interval: 326 ms QTC Calculation(Bezet): 441 ms P Delbarton: 77 degrees Calculated R [place]: 89 degrees Calculated T [place]on: 74 degrees Diagnosis Line: Sinus tachycardia with short MA Diagnosis Line: Biatrial enlargement Diagnosis Line: Abnormal ECG Diagnosis Line: When compared with ECG of 21-JAN-2017 11:20, Diagnosis Line: Questionable change in QRS duration Diagnosis Line: Criteria for Anterior infarct are no longer Diagnosis Line: Present Diagnosis Line: Criteria for Anterolateral infarct are no longer Diagnosis Line: Present Diagnosis Line: Criteria for Inferior infarct are no longer Diagnosis Line: Present Diagnosis Line: Confirmed by NORA OKEEFE MD ([id number]) on 01/31/2017 Diagnosis Line: 9:16:50 PM INTERPRETING MD: SARY GARCIA
--- NOTE | ~2017-01-30 | HP ---
Unit #: [id number] #: [id number] Patient: ROEL HODGES [id number] [facility]. [place], [place] [address] [id number] E MR#: [id number] NAME: ROEL HODGES ROOM: Age: 31 Sex: F Admission Date: 01/30/2017 : 1985 Attending Physician: John Duncan M.D. Primary Care Physician: Livia Medeiros M.D. HISTORY AND PHYSICAL CHIEF COMPLAINT Coughing up mucus. HISTORY OF PRESENT ILLNESS The patient is a 31-year-old female with a past medical history of cerebral palsy, severe scoliosis, GERD, and dysphagia, who presented to the emergency department for evaluation of the above. Of note, the patient was hospitalized at [facility] January 09-2016, for aspiration pneumonia and acute respiratory failure. She had a somewhat prolonged hospital course requiring intubation and was difficult to wean. The patient completed a course of antibiotics in the hospital. She was also seen in consultation by Dr. Gutierrez and underwent advancement of the PEG tube into a PEJ. She was discharged home but thought to be high risk for aspiration. Per the Discharge Summary, the patient was to be discharged home on Jevity 1.2 at 45 mL/hour with free water flush 150-200 mL q.4 hours. Per the patient's caregiver, she has been receiving bolus feeds q.4 hours. The patient was apparently in her usual state of health until the evening prior to admission when she apparently had a restless night according to the caregiver. She was foaming at the mouth and appeared "scared." She was behaving in a way similar to when she has had a panic attack in the past. The caregiver gave her Zoloft, and those issues resolved. She received a bolus feed at about 5:30 on the morning of admission. At 9 a.m., she coughed up a large amount of possible phlegm and had a choking episode. She was brought to the emergency department for further evaluation. In the emergency department, rectal temperature was 98.3, pulse 116, respirations 19, blood pressure 126/90, and oxygen saturation 95% on room air. Chest x-ray shows nothing acute. Laboratory is essentially normal. She is being admitted to [facility] for evaluation and further treatment. PAST MEDICAL HISTORY 1. Admission to [facility] January 09-2016, for aspiration and acute respiratory failure. Please see details in History of Present Illness. 2. Cerebral palsy with multiple flexion contractures. 3. Severe scoliosis. 4. Asthma. 5. Gastroesophageal reflux disease. 6. Dysphagia with PEJ tube in place. Unit #: [id number] #: [id number] Patient: ROEL HODGES PAST SURGICAL HISTORY 1. Right hip surgery. 2. Previous tracheostomy. SOCIAL HISTORY The patient lives with a caregiver. There is no tobacco or alcohol use. FAMILY HISTORY Coronary artery disease per record review. ALLERGIES MORPHINE AND CODEINE. HOME MEDICATIONS 1. Prilosec. 2. Singulair. 3. Benadryl. 4. MiraLax. 5. Tussin. 6. Debrox drops. 7. Combivent. 8. Lasix. 9. Humalog. 10. Tylenol. Home medications will need to be reviewed and verified. REVIEW OF SYSTEMS A complete review of systems is negative except as indicated in the History of Present Illness. It is somewhat limited due to the patient being nonverbal. However, she is able to blink once for yes and two blinks for no. I also was able to obtain some historical information from the patient's mother, as well as the caregiver who is at bedside. PHYSICAL EXAMINATION VITAL SIGNS: Temperature is 98.9, pulse 115, respirations 17, blood pressure 126/90, and oxygen saturation 95% on room air. GENERAL: Patient is a female who is chronically ill appearing. HEENT: Head is atraumatic. Mucous membranes are moist. NECK: Somewhat rotated to the right and extended. CARDIOVASCULAR: Regular rate and rhythm. LUNGS: Clear to auscultation bilaterally with no increased work of breathing. ABDOMEN: Soft and nontender with bowel sounds present in all four quadrants. Patient has a J-tube in place. EXTREMITIES: Notable for contractures. There is no edema. NEUROLOGIC: Patient has severe contractures and scoliosis. SKIN: Skin of examined areas is warm and dry. She does have a wound on the right hip per the patient's family present on admission. DIAGNOSTIC STUDIES LABORATORY: Comprehensive metabolic panel notable for potassium of 3.4, chloride 88, bicarb 40, glucose 199, and albumin is 2.9. Complete blood count notable for white blood cell count of 10.8 and hemoglobin 10.7. IMAGING: Chest x-ray shows no acute abnormality. Unit #: [id number] #: [id number] Patient: ROEL HODGES ASSESSMENT The patient is a 31-year-old female with: 1. Possible aspiration. Chest x-ray is currently negative. However, the patient is at a high risk for aspiration. It is unclear if there are some issues with her feeding regime. Per the Discharge Summary, she was supposed to receive continuous feeds. However, she has been receiving bolus feeds. The choking episode occurred after a bolus feed. 2. Mild hypokalemia. 3. Normocytic anemia. The patient's hemoglobin was 12 on January 24, 2017. It is 10.7 today. 4. Cerebral palsy. 5. Severe scoliosis. 6. Gastroesophageal reflux disease. 7. Dysphagia, status post jejunostomy tube. 8. Right hip wound present on admission. PLAN 1. Admit for observation to intermediate level. 2. Repeat chest x-ray in the morning. 3. Supplemental oxygen. 4. P.r.n. DuoNebs. 5. Consult Dr. Gutierrez regarding possible aspiration and issue with feeds. 6. Check magnesium level. 7. Potassium/magnesium protocol. 8. Check EKG for further evaluation of tachycardia. 9. Wound Care consult. 10. Low-dose sliding scale insulin with Accu-Cheks. 11. Repeat labs in the morning. 12. Additional workup and consultants based on above. 1. Dictated by Ney Ko/aliyah TD: 01/30/2017 14:51 JOB #: [id number] HISTORY AND PHYSICAL Page 1 of 1 X Radha Wright MD X HISTORY AND PHYSICAL
--- NOTE | ~2017-01-30 | CR63 ---
[facility] A Service of [facility] & [facility] RADIOLOGY TEXT RESULTS PATIENT: ROEL HODGES LOCATION: [facility] 304-01 : [birth year] UNIT #: [id number] AGE: [address]: Brigida Yin MD SEX: F ORDER DR: [id number] [facility] [address] [facility]. [place], [place] [address] [id number] I MR#: [id number] Acc #: [id number] NAME: ROEL HODGES : 1985 SEX: F STUDY DATE/TIME: 01/31/2017 7:32 UNIT: [address] ROOM: [facility] STUDY DESCRIPTION: CR Chest 2 View Attending Physician: Brigida Yin M.D. Ordering Physician: Radha Wright M.D. Primary Care Physician: Livia Medeiros M.D. MEDICAL IMAGING REPORT This report is preliminary unless electronic signature is present EXAM Two-view chest. HISTORY Shortness of air x3 days. Eduardo patient. History of seizures. COMPARISON 01/30/2017 FINDINGS 2 views of the chest submitted. There is marked deformity of the thorax secondary to patient's severe scoliosis. No acute airspace disease or consolidation. No effusions. Heart and mediastinum unremarkable. Severe dextroscoliosis thoracic spine. No rib deformities are seen. Heart size within normal limits. No pneumothorax. IMPRESSION Severe scoliosis. No acute cardiopulmonary disease. Dictated by... Fan Vega M.D. THIS IS AN ELECTRONICALLY VERIFIED REPORT Fan Vega M.D. at 01/31/2017 3:54 PM MOIZ/hanny TD: 01/31/2017 09:54 JOB #: [id number] MEDICAL IMAGING REPORT Page 1 of 1 COPY
--- NOTE | ~2017-01-30 | CR72 ---
[facility] A Service of [facility] & [facility] RADIOLOGY TEXT RESULTS PATIENT: ROEL HODGES LOCATION: [facility] 304-01 : [birth year] UNIT #: [id number] AGE: [address]: Radha Wright MD SEX: F ORDER DR: [id number] [facility] [address] [facility]. [place], [place] [address] [id number] E MR#: [id number] Acc #: [id number] NAME: ROEL HODGES : 1985 SEX: F STUDY DATE/TIME: 01/30/2017 11:47 UNIT: [facility] ROOM: STUDY DESCRIPTION: CR Chest Single View Portable Attending Physician: John Duncan M.D. Ordering Physician: John Duncan M.D. Primary Care Physician: Livia Medeiros M.D. MEDICAL IMAGING REPORT This report is preliminary unless electronic signature is present EXAM Portable chest INDICATIONS Productive cough for 2 days. FINDINGS A portable view of the chest is obtained and compared with 01/26/2017. The patient has marked scoliosis. No infiltrates are visible. The heart size is normal. IMPRESSION Marked scoliosis. No active disease is visible. Dictated by... William Ryan M.D. THIS IS AN ELECTRONICALLY VERIFIED REPORT William Ryan M.D. at 01/30/2017 4:37 PM FEL/justino TD: 01/30/2017 14:15 JOB #: [id number] MEDICAL IMAGING REPORT Page 1 of 1 COPY
--- NOTE | ~2017-01-30 | DS ---
Unit #: [id number] #: [id number] Patient: ROEL HODGES [id number] [address] [place], [place] [address] [id number] I MR#: [id number] NAME: ROEL HODGES ROOM: 304 Age: 31 Sex: F Admission Date: 01/30/2017 : 1985 Discharge Date: 01/31/2017 Attending Physician: Brigida Yin M.D. Primary Care Physician: Livia Medeiros M.D. DISCHARGE SUMMARY REASON FOR ADMISSION Coughing of mucus. HISTORY OF PRESENT ILLNESS/HOSPITAL COURSE Please see H and P for complete details through hospital course. The patient's chest x-ray was performed, which did not show any acute process. Presumed aspiration pneumonia was made on day of admission, however, chest x-ray was normal. CBC showed a white count of 5.2, hemoglobin of 10.4. Consultation was placed to Dr. Gutierrez of [facility]. Family discussed risks and benefits of bolus feeding versus continuous tube feeding with Dr. Gutierrez and secondary to current living situation as the patient does reside in a custodial. Bolus feeding is the only option for the patient. Therefore, after evaluation from Dr. Gutierrez and deemed that her PEJ was functional. The patient was discharged back to custodial with bolus feedings q.4 to q.6 hours per family's decision. FINAL DISCHARGE DIAGNOSES 1. Possible aspiration; however, chest x-ray clear. 2. Mild hypokalemia on admission, now resolved. 3. Anemia. Baseline hemoglobin approximately 10 to 11. 4. Cerebral palsy. 5. Nonverbal. 6. Failure to thrive. 7. Severe protein malnutrition. 8. Severe scoliosis. 9. Gastroesophageal reflux disease. 10. Chronic left hip dislocation. 11. Chronic right hip wound, which was seen on admission. 12. Dysphagia, status post PEG with recent transition into PEJ tube. FINAL DISCHARGE MEDICATIONS Remain unchanged from home medications with the addition of bolus feedings. Overall, the patient's long-term prognosis is poor/dismal. Family is not interested in DNR and/or hospice care at this point in time. In fact, they became very upset when nursing staff try to initiate discussion. Time spent 35 minutes. Unit #: [id number] #: [id number] Patient: ROEL HODGES Dictated by... Ney Chapin/laith TD: 02/01/2017 23:49 JOB #: [id number] DISCHARGE SUMMARY Page 1 of 1 X Brigida Yin MD X DISCHARGE SUMMARY
--- NOTE | ~2017-01-30 | CR7 ---
[facility] A Service of [facility] & [facility] RADIOLOGY TEXT RESULTS PATIENT: ROEL HODGES LOCATION: [facility] 304-01 : [birth year] UNIT #: [id number] AGE: [address]: Brigida Yin MD SEX: F ORDER DR: [id number] [facility] [address] [facility]. [place], [place] [address] [id number] I MR#: [id number] Acc #: [id number] NAME: ROEL HODGES : 1985 SEX: F STUDY DATE/TIME: 01/30/2017 20:28 UNIT: A U ROOM: [facility] STUDY DESCRIPTION: CR Abdomen Single AP View Attending Physician: Radha Wright M.D. Ordering Physician: Mayco Gutierrez M.D. Primary Care Physician: Livia Medeiros M.D. MEDICAL IMAGING REPORT This report is preliminary unless electronic signature is present EXAM Frontal abdomen 01/30/2017 INDICATIONS J-tube placement. TECHNIQUE Frontal abdomen was performed following the injection of contrast material into a preexisting J-tube. Correlation is made with prior study 01/10/2017 FINDINGS Exam is degraded by nonstandard positioning and extreme dextroscoliosis. The patient is status post total right hip replacement. There is a chronically dislocated left hip. There is an electronic pump device and catheter tubing projecting over the right lower pelvis. There is contrast opacification of the stomach and what appears to be the proximal duodenum. No distinct extraluminal contrast is identified. IMPRESSION 1. Contrast opacification of the stomach and what appears to be the proximal duodenum. No definite extraluminal contrast identified. 2. Severe dextroscoliosis. Chronic hip dislocation on the left. Dictated by... Karlos Bruno M.D. THIS IS AN ELECTRONICALLY VERIFIED REPORT Karlos Bruno M.D. at 01/31/2017 9:55 PM Carla TD: 01/31/2017 06:46 JOB #: [id number] [facility] A Service of [facility] & [facility] RADIOLOGY TEXT RESULTS PATIENT: ROEL HODGES LOCATION: [facility] 304-01 : [birth year] UNIT #: [id number] AGE: [address]: Brigida Yin MD SEX: F ORDER DR: MEDICAL IMAGING REPORT Page 1 of 1 COPY
[2017-01-30 12:15] LABS: BASOPHIL% 0.3 % (0-2.5); EOSINOPHIL% 0.3 % (0.0-7.0); HEMATOCRIT 31.8 % (35.0-45.0); HEMOGLOBIN 10.7 gm/dL (12.0-16.0); LYMPHOCYTE# 0.7 X10e3 (1.0-3.5); LYMPHOCYTE% 6.3 % (17.0-45.0); MEAN CELL VOLUME 91.7 FL (83-96); MEAN CORPUSCULAR HGB CONC 33.7 g/dL (30-36); MONOCYTE# 0.8 X10e3 (0-1.0); MONOCYTE% 7.6 % (3.0-12.0); NEUTROPHIL# 9.3 X10e3 (1.5-7.1); NEUTROPHIL% 85.5 % (40-75); PLATELET COUNT 278 X10e3 (140-420); RED BLOOD COUNT 3.47 X10e (3.90-5.30); RED CELL DISTRIBUTION WIDTH 13.6 % (11.0-15.5); WHITE BLOOD COUNT 10.8 X10e3 (4.0-10.5)
[~2017-01-30 12:17] MED LIST changes: +COMBIVENT MININEB INH; +COMBIVENT U/D3 M4 INH; +COMBIVENT U/D3 ML; +DEBROX OTIC DRO15 ML AD; +FREE WATER PEG; +HUMALOG100 U/M2 SUBQ; +LASIX PEG; +SLIDING SCALE; +TYLENOL325 MG/10. PEG; +ZOLOFT PEG; +[UNRECOGNIZED DRUG - OTHER]
[2017-01-30 12:21] LABS: DIFF IND NO
[2017-01-30 12:43] LABS: ALBUMIN SERUM 2.9 g/dL (3.5-5.0); BILIRUBIN, DIRECT 0.1 mg/dL (0.0-0.2); BILIRUBIN,INDIRECT 0.6 mg/dL (0.0-0.9); BILIRUBIN,TOTAL 0.7 mg/dL (0.2-2.0); CALCIUM SERUM 8.6 mg/dL (8.4-10.2); CREATININE SERUM 0.5 mg/dL (0.6-1.4); GLOM FILT RATE Estimated 127.2 mL/min (>60); POTASSIUM 3.4 mmol/L (3.5-5.1); PROTEIN TOTAL SERUM 6.1 g/dL (6.0-8.3)
[2017-01-31 05:35] LABS: HEMATOCRIT 30.6 % (35.0-45.0); HEMOGLOBIN 10.4 gm/dL (12.0-16.0); MEAN CELL VOLUME 91.8 FL (83-96); MEAN CORPUSCULAR HGB CONC 33.8 g/dL (30-36); MEAN PLATELET VOLUME 8.6 FL (6.5-11.5); RED BLOOD COUNT 3.34 X10e (3.90-5.30); RED CELL DISTRIBUTION WIDTH 13.8 % (11.0-15.5)
[2017-01-31 05:40] LABS: WHITE BLOOD COUNT 5.2 X10e3 (4.0-10.5)
[2017-01-31 06:55] LABS: ALBUMIN SERUM 2.9 g/dL (3.5-5.0); BILIRUBIN,TOTAL 0.8 mg/dL (0.2-2.0); CALCIUM SERUM 8.5 mg/dL (8.4-10.2); CREATININE SERUM 0.4 mg/dL (0.6-1.4); GLOM FILT RATE Estimated 136.9 mL/min (>60); MAGNESIUM 2.3 mg/dL (1.6-3.0); POTASSIUM 3.8 mmol/L (3.5-5.1); PROTEIN TOTAL SERUM 5.7 g/dL (6.0-8.3)
[2017-01-31] MEDS ORDERED: ROBITUSSIN DM PEG (16:11)
[2017-01-31] MEDS ORDERED: DESENEX45 G1 TOP (16:19)
[2017-01-31] MEDS ORDERED: [UNRECOGNIZED DRUG - SUPPLY] TOP (16:20)
[2017-01-31] MEDS ORDERED: [UNRECOGNIZED DRUG - OTHER] TOP (16:21)
[2017-01-31] MEDS ORDERED: [UNRECOGNIZED DRUG - SUPPLY] (16:22)
[2017-02-19] MEDS ORDERED: SINGULAIR PEG (22:23)
[2017-02-19] MEDS ORDERED: OMEPRAZOLE40 M1 PEG (22:23)
[2017-02-19] MEDS ORDERED: CONGESTI EAC PEG (22:24)
[2017-02-19] MEDS ORDERED: IBUPROFEN800 MG PO (22:24)
[2017-02-19] MEDS ORDERED: SERTRALINE20 MG/1 ML PO (22:25)
[2017-02-19] MEDS ORDERED: ACETAMINOPHEN PEG (22:26)
[2017-02-19] MEDS ORDERED: MIRALAX17 GM PEG (22:27)
[2017-02-19] MEDS ORDERED: FLORANEX GRANU1 EACH PEG (22:27)
[2017-02-19] MEDS ORDERED: ZOFRAN ODT4 M1 SL (22:29)
[2017-02-19] MEDS ORDERED: [UNRECOGNIZED DRUG - OTHER] AU (22:29)
== END 2017-01-31 19:56 | disposition home or self-care (01) | DRG 315 ==
LOC: CED 12:17 → CEDOF 14:20 → C3A PCU 16:22
PROVIDERS: Emergency Medicine; Family Medicine
DX: R09.89 Other specified symptoms and signs involving the circulatory and respiratory systems (principal); R05 Cough; R13.10 Dysphagia, unspecified; K21.9 Gastro-esophageal reflux disease without esophagitis; G80.9 Cerebral palsy, unspecified; M41.9 Scoliosis, unspecified; E87.6 Hypokalemia; D64.9 Anemia, unspecified; R62.7 Adult failure to thrive; E46 Unspecified protein-calorie malnutrition; M24.452 Recurrent dislocation, left hip; S71.001S Unspecified open wound, right hip, sequela; Z93.1 Gastrostomy status; Z79.899 Other long term (current) drug therapy; Z82.49 Family history of ischemic heart disease and other diseases of the circulatory system; Z88.5 Allergy status to narcotic agent
CPT/HCPCS: 36415; 71010; 71020; 74000; 80048; 80053; 80076; 82947; 83735; 85025; 85027; 93005; 94640; 94760; 96374; 96375; 96376; 99285; G0378; J3475

== ENCOUNTER 2017-02-19 23:38 | Emergency (ER) | payer OTHER ==
--- NOTE | ~2017-02-19 | CR72 ---
[facility] A Service of [facility] & [facility] RADIOLOGY TEXT RESULTS PATIENT: ROEL HODGES LOCATION: [facility] : 83 UNIT #: [id number] AGE: [address]: Joe Brown MD SEX: F ORDER DR: [id number] [facility] [address] [place], [place] [address] [id number] E MR#: [id number] Acc #: [id number] NAME: ROEL HODGES : 1985 SEX: F STUDY DATE/TIME: 02/19/2017 22:26 UNIT: [facility] ROOM: STUDY DESCRIPTION: CR Chest Single View Portable Attending Physician: Joe Brown M.D. Ordering Physician: Marjorie Rivera M.D. Primary Care Physician: Livia Medeiros M.D. MEDICAL IMAGING REPORT This report is preliminary unless electronic signature is present EXAM Portable chest x-ray 02/19/2017 HISTORY Aspiration. Possible pneumonia. Duration today. FINDINGS AP radiograph of the chest is presented. Comparison 01/31/2017. Marked thoracic and lumbar dextroscoliosis. Stable. No acute-appearing bony abnormality. Given spinal curvature, cardiomediastinal contours normal. Lungs well inflated with some volume loss on the right secondary to the spinal curvature. Stable appearance. There is no compelling evidence of acute pulmonary disease. No pleural effusion or pneumothorax. No suspicious nodule. No dense airspace disease. If the patient has ongoing respiratory symptoms, consider follow up imaging. Catheter like densities superimposed over the lumbar spinal column probably represents some form of intrathecal catheter. Grossly unchanged from prior examination though more conspicuous today. Dictated by... Antwan Noble M.D. THIS IS AN ELECTRONICALLY VERIFIED REPORT Antwan Noble M.D. at 02/20/2017 3:05 PM LAUREL/jamil TD: 02/20/2017 02:47 JOB #: [id number] MEDICAL IMAGING REPORT Page 1 of 1 COPY
[~2017-02-19 23:38] MED LIST changes: +ACETAMINOPHEN PEG; +CONGESTI EAC PEG; +DESENEX45 G1 TOP; +FLORANEX GRANU1 EACH PEG; +IBUPROFEN800 MG PO; +MIRALAX17 GM PEG; +OMEPRAZOLE40 M1 PEG; +ROBITUSSIN DM PEG; +SERTRALINE20 MG/1 ML PO; +SINGULAIR PEG; +ZOFRAN ODT4 M1 SL; +[UNRECOGNIZED DRUG - OTHER] AU; +[UNRECOGNIZED DRUG - OTHER] TOP; +[UNRECOGNIZED DRUG - SUPPLY]; +[UNRECOGNIZED DRUG - SUPPLY] TOP
== END 2017-02-20 00:25 | disposition home or self-care (01) ==
LOC: CED 23:38
DX: R05 Cough (principal); R11.10 Vomiting, unspecified; J45.909 Unspecified asthma, uncomplicated; Z88.5 Allergy status to narcotic agent; Z79.899 Other long term (current) drug therapy
CPT/HCPCS: 71010; 99283

== ENCOUNTER 2017-04-05 16:12 | Emergency (ER) | payer OTHER ==
--- NOTE | ~2017-04-05 | CR72 ---
[facility] A Service of [facility] RADIOLOGY TEXT RESULTS PATIENT: ROEL HODGES LOCATION: [facility] : 83 UNIT #: [id number] AGE: [address]: Marjorie Rivera MD SEX: F ORDER DR: [id number] [facility] [address] [place], [place] [address] [id number] E MR#: [id number] Acc #: [id number] NAME: ROEL HODGES : 1985 SEX: F STUDY DATE/TIME: 04/05/2017 17:07 UNIT: [facility] ROOM: STUDY DESCRIPTION: CR Chest Single View Portable Attending Physician: Marjorie Rivera M.D. Ordering Physician: Marjorie Rivera M.D. Primary Care Physician: Aster Woodruff M.D. MEDICAL IMAGING REPORT This report is preliminary unless electronic signature is present EXAM Portable chest HISTORY Negative. Aspiration event today, shortness of breath. FINDINGS An AP view is obtained and compared directly to the patient's previous film of 02/19. There is severe kyphoscoliosis. The heart size is normal. Lungs are clear. CONCLUSION Severe kyphoscoliosis. No acute process in the chest Dictated by... Antwan Myers M.D. THIS IS AN ELECTRONICALLY VERIFIED REPORT Antwan Myers M.D. at 04/06/2017 6:07 PM Izaiah TD: 04/05/2017 23:14 JOB #: [id number] MEDICAL IMAGING REPORT Page 1 of 1 COPY
--- NOTE | ~2017-04-05 | EKG ---
PATIENT: ROEL HODGES UNIT #: [id number] Ventricular Rate: 122 BPM Atrial Rate: 122 BPM P-R Interval: 90 ms QRS Duration: 66 ms Q-T Interval: 288 ms QTC Calculation(Bezet): 410 ms P Wind[place]: 62 degrees Calculated R [place]: 81 degrees Calculated T [place]: 37 degrees Diagnosis Line: Sinus tachycardia with short AL Diagnosis Line: Left atrial enlargement Diagnosis Line: Borderline ECG Diagnosis Line: Diagnosis Line: Confirmed by JCARLOS ABBOTT MD ([id number]) on Diagnosis Line: 04/07/2017 1:13:19 PM INTERPRETING MD: AZEB
[2017-04-05 17:21] LABS: BASOPHIL# 0.1 X10e3 (0-0.3); BASOPHIL% 0.7 % (0-2.5); EOSINOPHIL# 0.1 X10e3 (0-0.7); EOSINOPHIL% 0.6 % (0.0-7.0); HEMATOCRIT 38.2 % (35.0-45.0); HEMOGLOBIN 12.2 gm/dL (12.0-16.0); LYMPHOCYTE# 1.4 X10e3 (1.0-3.5); LYMPHOCYTE% 13.9 % (17.0-45.0); MEAN CELL VOLUME 87.2 FL (83-96); MEAN CORPUSCULAR HEMOGLOBIN 27.9 PG (28-34); MONOCYTE# 0.9 X10e3 (0-1.0); MONOCYTE% 9.1 % (3.0-12.0); NEUTROPHIL# 7.5 X10e3 (1.5-7.1); NEUTROPHIL% 75.7 % (40-75); PLATELET COUNT 265 X10e3 (140-420); RED BLOOD COUNT 4.38 X10e (3.90-5.30); RED CELL DISTRIBUTION WIDTH 14.5 % (11.0-15.5); WHITE BLOOD COUNT 9.9 X10e3 (4.0-10.5)
[2017-04-05 17:22] LABS: DIFF IND NO
[2017-04-05 17:29] LABS: POC - CKMB 1.8 ng/mL (0.0-7.9); POC - TROPONIN <0.05 ng/mL (<=0.05)
[2017-04-05 17:52] LABS: ALBUMIN SERUM 3.8 g/dL (3.5-5.0); BILIRUBIN, DIRECT 0.2 mg/dL (0.0-0.2); BILIRUBIN,INDIRECT 0.4 mg/dL (0.0-0.9); BILIRUBIN,TOTAL 0.6 mg/dL (0.2-2.0); CALCIUM SERUM 8.6 mg/dL (8.4-10.2); CREATININE SERUM 0.3 mg/dL (0.6-1.4); GLOM FILT RATE Estimated 150.5 mL/min (>60); POTASSIUM 4.3 mmol/L (3.5-5.1); PROTEIN TOTAL SERUM 7.5 g/dL (6.0-8.3)
== END 2017-04-05 20:13 | disposition home or self-care (01) ==
LOC: CED 16:12
PROVIDERS: Student in an Organized Health Care Education/Training Program
DX: R11.10 Vomiting, unspecified (principal); F41.9 Anxiety disorder, unspecified; Z98.890 Other specified postprocedural states; Z88.5 Allergy status to narcotic agent; Z79.899 Other long term (current) drug therapy
CPT/HCPCS: 36415; 71010; 80048; 80076; 82553; 84484; 85025; 87040; 93005; 96360; 99284